=== PATIENT | female | born 1940 | race Caucasian/White ===

== ENCOUNTER 2017-01-18 14:27 | Inpatient (IN) | payer MEDICARE, MEDICAID ==
[2017-01-18 15:10] LABS: % BASOPHILS 0.8 % (0.0-2.0); % EOSINOPHILS 2.6 % (0.0-5.0); % LYMPHOCYTES 30.5 % (20.0-50.0); % NEUTROPHILS 57.1 % (40.0-80.0); HEMATOCRIT 38.1 % (35.0-45.0); HEMOGLOBIN 12.7 gm/dL (11.7-16.1); MEAN CELL VOLUME 96.3 fl (81-100); MEAN CORPUSCULAR HGB CONC 33.3 pg (28.0-36.0); MEAN PLATELET VOLUME 9.6 fl; NEUTROPHILE ABSOLUTE 5.6 Th/cmm (1.8-8.0); PLATELET COUNT 228 Th/cmm (150-400); RED BLOOD COUNT 3.96 Mil/cmm (3.80-5.20); RED CELL DISTRIBUTION WIDTH 13.8 % (11.5-20.0)
[2017-01-18 15:20] LABS: INR 0.99 (0.5-1.4); PROTHROMBIN TIME (TEST) 10.3 SECONDS (9.5-11.5)
--- NOTE | 2017-01-18 15:22 | ED Physician Chart ---
Chief Complaint/HPI - Patient Information Date Seen:: 01/18/17 Time Seen:: 14:40 Chief Complaint:: PSYCHOSIS History of Present Illness:: THIS IS A 76 YO FEMALE WHO WAS SENT FROM A DETENTION FOR AN EVALUATION OF MENTAL STATUS. Allergies:: Allergies Allergy/AdvReac Type Severity Reaction Status Date / Time piperacillin [From Zosyn] Allergy Verified 01/18/17 14:35 tazobactam [From Zosyn] Allergy Verified 01/18/17 14:35 Vitals:: Vital Signs - 8 hr 01/18/17 14:36 Temp 97.8 F HR 79 RR 17 BP 141/52 O2 Sat % 98 Historian:: Medical Records Review:: Nurse's Note Reviewed, Transfer documents Reviewed Review of Systems - Review of Systems General/Constitutional: Other (THIS PATIENT IS UNABLE TO GIVE A REVIEW OF SYSTEMS) Past Medical History - Past Medical History Obtainable: Yes Past Medical History: ESRD, Dementia, Other (ALCOHOL ABUSE) Family History: None Social History: Non Smoker, No Alcohol, No Drug Use Surgical History: None Psychiatricy History: Depression Medication: Reviewed Family Medical History - Family Member Mother History Unknown: Yes Physical Exam - Physical Examination General/Constitutional: Awake, Well-developed, well-nourished, Alert, No distress, GCS 15, Non-toxic appearing, Ambulatory Other Gen/Cons comments:: CONFUSED AT TIMES Head: Atraumatic Eyes: Lids, conjuctiva normal, PERRL, EOMI Skin: Nl inspection, No rash, No skin lesions, No ecchymosis, Well hydrated, No lymphadenopathy ENMT: External ears, nose nl, Nasal exam nl, Lips, teeth, gums nl Neck: Nontender, Full ROM w/o pain, No JVD, No nuchal rigidity, No bruit, No mass, No stridor Respiratory: Nl effort/Exclusion, Clear to Auscultation, No Wheeze/Rhonchi/Rales Cardio Vascular: RRR, No murmur, gallop, rubs, NL S1 S2 GI: No tenderness/rebounding/guarding, No organomegaly, No hernia, Normal BS's, Nondistended, No mass/bruits, No McBurney tenderness : No CVA tenderness Extremities: No tenderness or effusion, Full ROM, normal strength in all extremities, No edema, Normal digits & nails Neuro/Psych: Alert/oriented, DTR's symmetric, Normal sensory exam, Normal motor strength, Mood normal (DEPRESSED), Normal gait, No focal deficits Misc: normal gait, Normal back, No paraspinal tenderness Labs/Radiology/EKG Results - Lab Results Results: Laboratory Tests 01/18/17 14:58 WBC 10.0 RBC 3.96 Hgb 12.7 Hct 38.1 MCV 96.3 MCH 32.0 H MCHC Differential 33.3 RDW 13.8 Plt Count 228 MPV 9.6 Neutrophils % 57.1 Lymphocytes % 30.5 Monocytes % 9.0 Eosinophils % 2.6 Basophils % 0.8 Abnormal Lab Results 01/18/17 14:58 WBC 10.0 RBC 3.96 Hgb 12.7 Hct 38.1 MCV 96.3 MCH 32.0 H MCHC Differential 33.3 RDW 13.8 Plt Count 228 MPV 9.6 Neutrophils % 57.1 Lymphocytes % 30.5 Monocytes % 9.0 Eosinophils % 2.6 Basophils % 0.8 Assessment - Assessment General Assessment: PSYCHOSIS ED Septic Shock - . Is Septic Shock (SBP<90, OR Lactate>4 mmol\L) present?: No - <6hrs of presentation: Vital Signs: Vital Signs - 8 hr 01/18/17 14:36 Temp 97.8 F HR 79 RR 17 BP 141/52 O2 Sat % 98 Reassessment (Disposition) - Reassessment Reassessment Condition:: Unchanged - Patient Disposition Discharge/Transfer:: Acute Care w/in this hosp Admitting Medical Physician:: Caesar Ardon Admitting Psych Physician:: Star Camacho Condition at Disposition:: Unchanged ED Discharge Plan - Patient Disposition Instructions: Psychosis
[2017-01-18 15:25] LABS: ALB/GLOB RATIO 1.3 (1.0-1.8); ALKALINE PHOSPHATASE 67 U/L (34-104); ANION GAP 8.3 (7.0-16.0); BILIRUBIN,TOTAL 0.4 mg/dL (0.3-1.0); BUN - UREA NITROGEN 7 mg/dL (7-25); CALCIUM SERUM 9.9 mg/dL (8.6-10.3); CARBON DIOXIDE 25.4 mEq/L (21.0-31.0); CHLORIDE 107 mEq/L (98-107); CHOLESTEROL 185 mg/dL (<200); CREATININE - SERUM 0.5 mg/dL (0.6-1.2); GLUCOSE 114 mg/dL (70-105); POTASSIUM SERUM 3.7 mEq/L (3.5-5.1); SGOT 17 U/L (13-39); SGPT/ALT 9 U/L (7-52); SODIUM SERUM 137 mEq/L (136-145); TRIGLYCERIDES 129 mg/dL (<150)
[2017-01-18 15:52] LABS: URINE BILIRUBIN NEGATIVE (NEGATIVE); URINE BLOOD TRACE (NEGATIVE); URINE GLUCOSE (UA) NEGATIVE (NEGATIVE); URINE KETONE NEGATIVE (NEGATIVE); URINE PH 6.5 (4.6 - 8.0); URINE PROTEIN NEGATIVE (NEGATIVE); URINE UROBILINOGEN 0.2 E.U./dL (0.2 - 1.0)
[2017-01-18 16:11] LABS: URINE COLOR YELLOW
[2017-01-18 16:12] LABS: URINE BACTERIA MANY /hpf (NONE SEEN); URINE EPITHELIAL CELLS MODERATE /lpf (FEW); URINE RBC 0-2 /hpf (0-5); URINE WBC 0-2 /hpf (0-5)
[2017-01-18 18:00] VITALS: BP 139/80
[2017-01-18] MEDS ORDERED: Magnesium Hydroxide (MOM) 30 mL UDC PO PRN (19:37)
[2017-01-18] MEDS ORDERED: Maalox 30 mL Cup PO PRN (19:37)
--- NOTE | 2017-01-19 07:52 | Diagnostic Imaging Report ---
CHEST X-RAY: AP view INDICATION: Cough COMPARISON: None FINDINGS: Mild chronic changes are seen with slight increased left basal density. No focal consolidation. Heart size normal. Postoperative changes of left shoulder are noted with left shoulder arthroplasty. There appears to be skinfold along left hemithorax. No evidence of pneumothorax. Atherosclerosis is noted. IMPRESSION: Slight increase left basal density which is suggestive of chronic pleural or parenchymal changes. Acute infiltrative is considered much less likely. Please correlate with clinical findings. Atherosclerotic vascular disease. Left shoulder arthroplasty.
[2017-01-19] MEDS ORDERED: Multivitamin Tab PO SCH (09:00)
[2017-01-19] MEDS: Potassium Chloride 10 mEq ER Tab PO SCH (09:20)
--- NOTE | 2017-01-19 15:58 | History & Physical ---
ADMIT DATE: 01/19/2017 HISTORY OF PRESENT ILLNESS: This is a 76-year-old female who is a [facility] resident who is brought here to [facility] for psychosis. PAST MEDICAL HISTORY: ESRD, dementia, alcohol abuse. FAMILY HISTORY: Noncontributory. SOCIAL HISTORY: The patient is a [facility] resident. SURGICAL HISTORY: None per patient. MEDICATIONS: Please see medication reconciliation sheet. REVIEW OF SYSTEMS: Unable to obtain. The patient is confused. PHYSICAL EXAMINATION: GENERAL: The patient is well developed, well nourished, no acute distress. VITAL SIGNS: Temperature 98.6, heart rate 104, blood pressure 106/73, respirations 20, O2 98%. HEENT: Head; normocephalic, atraumatic. NECK: Supple. No mass. LUNGS: Clear bilaterally. HEART: Regular rhythm. ABDOMEN: Soft, nontender. LABORATORY DATA: WBC 7.0, H and H 12.7 and 38.1, platelet of ____. Sodium 137, potassium 3.7, chloride 107, BUN 7, creatinine 0.5. The patient had a urinalysis done, negative for any UTI. The patient had a chest x-ray done and the impression is slightly increased left basilar ____, which is ____ chronic pleural or parenchymal changes. ASSESSMENT: Acute kidney failure, muscle weakness, major depressive disorder, hypokalemia, psychosis. PLAN: The patient will be admitted to the Geropsych Unit. Fall precautions will be initiated. We will continue to monitor this patient. [facility]# [id number]
--- NOTE | 2017-01-19 23:08 | Psychosocial Evaluation ---
DATE OF SERVICE: 01/19/2017 JUSTIFICATION FOR HOSPITALIZATION: The patient was brought to the hospital depressed, suicidal, currently on a 1:1. CHIEF COMPLAINT: "I don't know what they are talking about. I love to dance and sing." HISTORY OF PRESENT ILLNESS: This is a 76-year-old female, seems confused, alert and oriented to name, place. She does not know why she is here. She states the year is 2012. She states the month is August. Day of the week is Wednesday. The patient is denying any SI, but apparently, she presented with SI and was threatening to swallow her ring. Attest to poor sleep, insomnia, okay appetite, rambles on about how she loves life and loves to sing and dance. PAST PSYCHIATRIC HISTORY: Denies. She may have a diagnosis of dementia given her presentation and age. FAMILY HISTORY: Noncontributory. SOCIAL HISTORY: Born in [facility], 3 children. Currently living in a nursing facility. There may be also alcoholism involved, but the patient does deny. MEDICAL HISTORY: Please see full H and P. MENTAL STATUS EXAMINATION: Stated age. Fair eye contact. Speech within normal limits. Mood "Fine." Affect constricted. Thought processes were disoriented, confused. The patient presented due to SI, but currently denies. No HI. No overt psychotic symptoms. Insight and judgment diminished. PROVISIONAL DIAGNOSES: Rule out dementia, also mood, unspecified, rule out major depression. MEDICAL DIAGNOSIS: Please see full H and P. ESTIMATED LENGTH OF STAY: 5-7 days. ASSESSMENT: The patient is requiring inpatient hospitalization, was threatening suicide. Currently on a 1:1. Endorsing intent and plan. PLAN: I will continue Zoloft. We will have social work involved with increased collateral. TREATMENT PLAN: Includes group as well as milieu therapy. CONDITIONS FOR DISCHARGE: Improved mood. Improved affect. Cessation of any SI. JOB# [id number]
--- NOTE | 2017-01-20 08:28 | General Progress Note ---
Subjective - Review of Systems Events since last encounter: no distress Objective - Results Result Diagrams: 01/18/17 14:58 01/18/17 14:58 Recent Labs: Laboratory Last Values WBC 10.0 Th/cmm (4.8-10.8) 01/18/17 14:58 RBC 3.96 Mil/cmm (3.80-5.20) 01/18/17 14:58 Hgb 12.7 gm/dL (11.7-16.1) 01/18/17 14:58 Hct 38.1 % (35.0-45.0) 01/18/17 14:58 MCV 96.3 fl (81-100) 01/18/17 14:58 MCH 32.0 pg (27.0-31.0) H 01/18/17 14:58 MCHC Differential 33.3 pg (28.0-36.0) 01/18/17 14:58 RDW 13.8 % (11.5-20.0) 01/18/17 14:58 Plt Count 228 Th/cmm (150-400) 01/18/17 14:58 MPV 9.6 fl 01/18/17 14:58 Neutrophils % 57.1 % (40.0-80.0) 01/18/17 14:58 Lymphocytes % 30.5 % (20.0-50.0) 01/18/17 14:58 Monocytes % 9.0 % (2.0-10.0) 01/18/17 14:58 Eosinophils % 2.6 % (0.0-5.0) 01/18/17 14:58 Basophils % 0.8 % (0.0-2.0) 01/18/17 14:58 PT 10.3 SECONDS (9.5-11.5) 01/18/17 14:58 INR 0.99 (0.5-1.4) 01/18/17 14:58 PTT (Actin FS) 23.2 SECONDS (26.0-38.0) L 01/18/17 14:58 Sodium 137 mEq/L (136-145) 01/18/17 14:58 Potassium 3.7 mEq/L (3.5-5.1) 01/18/17 14:58 Chloride 107 mEq/L (98-107) 01/18/17 14:58 Carbon Dioxide 25.4 mEq/L (21.0-31.0) 01/18/17 14:58 Anion Gap 8.3 (7.0-16.0) 01/18/17 14:58 BUN 7 mg/dL (7-25) 01/18/17 14:58 Creatinine 0.5 mg/dL (0.6-1.2) L 01/18/17 14:58 Est GFR ( Amer) TNP 01/18/17 14:58 Est GFR (Non-Af Amer) TNP 01/18/17 14:58 BUN/Creatinine Ratio 14.0 01/18/17 14:58 Glucose 114 mg/dL (70-105) H 01/18/17 14:58 Calcium 9.9 mg/dL (8.6-10.3) 01/18/17 14:58 Total Bilirubin 0.4 mg/dL (0.3-1.0) 01/18/17 14:58 AST 17 U/L (13-39) 01/18/17 14:58 ALT 9 U/L (7-52) 01/18/17 14:58 Alkaline Phosphatase 67 U/L (34-104) 01/18/17 14:58 Troponin I 0.01 ng/mL (0.01-0.05) 01/18/17 14:58 Total Protein 6.8 gm/dL (6.0-8.3) 01/18/17 14:58 Albumin 3.8 gm/dL (3.7-5.3) 01/18/17 14:58 Globulin 3.0 gm/dL 01/18/17 14:58 Albumin/Globulin Ratio 1.3 (1.0-1.8) 01/18/17 14:58 Triglycerides 129 mg/dL (<150) 01/18/17 14:58 Cholesterol 185 mg/dL (<200) 01/18/17 14:58 LDL Cholesterol Direct 99 mg/dL (75-193) 01/18/17 14:58 HDL Cholesterol 62 mg/dL (23-92) 01/18/17 14:58 TSH 1.78 uIU/ml (0.34-5.60) 01/18/17 14:58 Urine Source CLEAN C 01/18/17 14:30 Urine Color YELLOW 01/18/17 14:30 Urine Clarity SLIGHT CLOUDY (CLEAR) 01/18/17 14:30 Urine pH 6.5 (4.6 - 8.0) 01/18/17 14:30 Ur Specific [place] 1.015 (1.005-1.030) 01/18/17 14:30 Urine Protein NEGATIVE mg/dL (NEGATIVE) 01/18/17 14:30 Urine Glucose (UA) NEGATIVE mg/dL (NEGATIVE) 01/18/17 14:30 Urine Ketones NEGATIVE mg/dL (NEGATIVE) 01/18/17 14:30 Urine Blood TRACE (NEGATIVE) 01/18/17 14:30 Urine Nitrate NEGATIVE (NEGATIVE) 01/18/17 14:30 Urine Bilirubin NEGATIVE (NEGATIVE) 01/18/17 14:30 Urine Urobilinogen 0.2 E.U./dL (0.2 - 1.0) 01/18/17 14:30 Ur Leukocyte Esterase NEGATIVE (NEGATIVE) 01/18/17 14:30 Urine RBC 0-2 /hpf (0-5) 01/18/17 14:30 Urine WBC 0-2 /hpf (0-5) 01/18/17 14:30 Ur Epithelial Cells MODERATE /lpf (FEW) 01/18/17 14:30 Urine Bacteria MANY /hpf (NONE SEEN) 01/18/17 14:30 RPR NONREACTIVE (NONREACTIVE) 01/18/17 14:58 - Physical Exam Vitals and I&O: Vital Signs Temp 98.8 F 01/20/17 06:42 Pulse 63 01/20/17 06:42 Resp 18 01/20/17 06:42 BP 95/46 01/20/17 06:42 Pulse Ox 98 01/19/17 20:45 Intake & Output 01/19/17 01/20/17 01/20/17 18:59 06:59 18:59 Intake Total 950 240 Balance 950 240 Weight (lbs) 65.771 kg Intake: Oral 950 240 Other: # Voids 4 3 # Bowel Movements 1 0 Active Medications: Current Medications Acetaminophen (Tylenol) 650 mg PO Q4HR PRN PRN Reason: Mild Pain / Temp above 100 Stop: 03/19/17 19:36 Al Hydrox/Mg Hydrox/Simethicone (Maalox) 30 ml PO Q4HR PRN PRN Reason: GI DISTRESS Stop: 03/19/17 19:36 Docusate Sodium (Colace) 100 mg PO Q24HR PRN PRN Reason: Constipation Stop: 03/19/17 19:59 Folic Acid (Folate) 1 mg PO DAILY JACQUES Stop: 03/20/17 08:59 Last Admin: 01/19/17 09:20 Dose: 1 mg Lorazepam (Ativan) 0.5 mg PO Q4H PRN; Protocol PRN Reason: Anxiety Stop: 03/19/17 18:59 Magnesium Hydroxide (Milk Of Magnesia) 30 ml PO HS PRN PRN Reason: Constipation Ondansetron HCl (Zofran Odt) 4 mg PO Q6H PRN PRN Reason: Nausea / Vomiting Stop: 03/19/17 19:51 Potassium Chloride (Klor-Con) 10 meq PO DAILY JACQUES Stop: 03/20/17 08:59 Last Admin: 01/19/17 09:20 Dose: 10 meq Sertraline HCl (Zoloft) 25 mg PO DAILY JACQUES PRN Reason: Protocol Stop: 03/20/17 17:59 Last Admin: 01/19/17 18:49 Dose: 25 mg Thiamine HCl (Vitamin B1) 100 mg PO DAILY [facility] Stop: 03/20/17 08:59 Last Admin: 01/19/17 09:21 Dose: 100 mg Tramadol HCl (Ultram) 50 mg PO Q8HR PRN PRN Reason: PAIN Stop: 03/19/17 19:46 Zolpidem Tartrate (Ambien) 5 mg PO HS PRN PRN Reason: Insomnia Stop: 03/19/17 19:36 Assessment/Plan - Problem List Patient Problems: All Active Problems DEPRESSION WITH SUICIDAL IDEATION (Acute)
[2017-01-20] MEDS: Potassium Chloride 10 mEq ER Tab PO SCH (10:38)
--- NOTE | 2017-01-21 03:12 | Progress Notes ---
DATE: 01/20/2017 SUBJECTIVE: The patient was seen, chart reviewed, and discussed with staff. The patient is currently in the hospital, depressed, was making suicidal statements, yesterday she denied, but today, she states that she did make those statements stating she was very depressed. The patient remains somewhat disoriented. She states that she is quite moravian, however and is reading some moravian scripts. She has history of dementia and states that her kids are involved in her care. She remains isolative, withdrawn, currently on Zoloft. ASSESSMENT: The patient was seen, apparent history of dementia, overwhelmed, guarded. It is unclear why she was so depressed. It is unclear why she was experiencing suicidal thoughts. PLAN: We will try to increase collateral, reach out to family. We will monitor. Consider increasing Zoloft. JOB# [id number]
--- NOTE | 2017-01-21 04:52 | Admit Criteria Form ---
Admit Criteria Forms - Admit Criteria Diagnosis: PSYCHIATRIC DISORDERS (Place 'X' for any and all applicable criteria): Ongoing inpatient care may be needed for 1 or more of the following(1)(2)(3)(4)( 6)(7)(8): [ X]I. Danger to self or others not manageable at lower level of care. [ ]II. Grave disability (eg, inability to perform self care necessary at lower level of care) [ ]III. Agitation or inappropriate behavior interfering with care for primary condition (eg, attempting to discontinue lines or drains prematurely, unable to cooperate with respiratory care) [ ]IV. Severe disability or disorder indicated by ALL of the following: [ ]a) Severe behavioral health disorder-related symptoms or condition indicated by 1 or more of the following: [ ]i) Severe problem with cognition, memory, judgment, or impulse control [ ]ii) Severe clinical manifestations (eg, hallucinations, delusions, other acute psychotic symptoms, kemi, extreme agitation or anxiety) [ ]b) Patient management at lower level of care is not feasible until acute intervention or modification is initiated. Extended stay beyond goal length of stay for the primary condition may be needed until ALLof the following are present(1)(2)(3)(4)7)10)(23): [ ]a) Danger to self or others is absent or manageable at lower level of care [ ]b) Behavior crisis management, including physical or chemical restraints, is required and is not available at a lower level of care. [ ]c) Behavioral symptoms (e.g., agitation, somnolence, inappropriate behavior) are present, and are not manageable at a lower level of care. [ ]d) Patient cannot understand follow-up treatment and crisis plan. [ ]e) Provider and supports are sufficiently available at lower level of care. [ ]f) Patient can participate (e.g., verify absence of plan for harm) and is in needed of monitoring. The original [facility] [employer] content created by [facility]ark[facility]igatorMD has been revised. The portions of the content which have been revised are identified through the use of italic text or in bold, and [facility] has neither reviewed nor approved the modified material. All other unmodified content is copyright [facility]. Please see references footnoted in the original [facility] edition 2017 Admit Criteria Met?: Yes
--- NOTE | 2017-01-21 08:01 | General Progress Note ---
Subjective - Review of Systems Events since last encounter: patient is awake alert, withdrawn Objective - Results Result Diagrams: 01/18/17 14:58 01/18/17 14:58 Recent Labs: Laboratory Last Values WBC 10.0 Th/cmm (4.8-10.8) 01/18/17 14:58 RBC 3.96 Mil/cmm (3.80-5.20) 01/18/17 14:58 Hgb 12.7 gm/dL (11.7-16.1) 01/18/17 14:58 Hct 38.1 % (35.0-45.0) 01/18/17 14:58 MCV 96.3 fl (81-100) 01/18/17 14:58 MCH 32.0 pg (27.0-31.0) H 01/18/17 14:58 MCHC Differential 33.3 pg (28.0-36.0) 01/18/17 14:58 RDW 13.8 % (11.5-20.0) 01/18/17 14:58 Plt Count 228 Th/cmm (150-400) 01/18/17 14:58 MPV 9.6 fl 01/18/17 14:58 Neutrophils % 57.1 % (40.0-80.0) 01/18/17 14:58 Lymphocytes % 30.5 % (20.0-50.0) 01/18/17 14:58 Monocytes % 9.0 % (2.0-10.0) 01/18/17 14:58 Eosinophils % 2.6 % (0.0-5.0) 01/18/17 14:58 Basophils % 0.8 % (0.0-2.0) 01/18/17 14:58 PT 10.3 SECONDS (9.5-11.5) 01/18/17 14:58 INR 0.99 (0.5-1.4) 01/18/17 14:58 PTT (Actin FS) 23.2 SECONDS (26.0-38.0) L 01/18/17 14:58 Sodium 137 mEq/L (136-145) 01/18/17 14:58 Potassium 3.7 mEq/L (3.5-5.1) 01/18/17 14:58 Chloride 107 mEq/L (98-107) 01/18/17 14:58 Carbon Dioxide 25.4 mEq/L (21.0-31.0) 01/18/17 14:58 Anion Gap 8.3 (7.0-16.0) 01/18/17 14:58 BUN 7 mg/dL (7-25) 01/18/17 14:58 Creatinine 0.5 mg/dL (0.6-1.2) L 01/18/17 14:58 Est GFR ( Amer) TNP 01/18/17 14:58 Est GFR (Non-Af Amer) TNP 01/18/17 14:58 BUN/Creatinine Ratio 14.0 01/18/17 14:58 Glucose 114 mg/dL (70-105) H 01/18/17 14:58 Calcium 9.9 mg/dL (8.6-10.3) 01/18/17 14:58 Total Bilirubin 0.4 mg/dL (0.3-1.0) 01/18/17 14:58 AST 17 U/L (13-39) 01/18/17 14:58 ALT 9 U/L (7-52) 01/18/17 14:58 Alkaline Phosphatase 67 U/L (34-104) 01/18/17 14:58 Troponin I 0.01 ng/mL (0.01-0.05) 01/18/17 14:58 Total Protein 6.8 gm/dL (6.0-8.3) 01/18/17 14:58 Albumin 3.8 gm/dL (3.7-5.3) 01/18/17 14:58 Globulin 3.0 gm/dL 01/18/17 14:58 Albumin/Globulin Ratio 1.3 (1.0-1.8) 01/18/17 14:58 Triglycerides 129 mg/dL (<150) 01/18/17 14:58 Cholesterol 185 mg/dL (<200) 01/18/17 14:58 LDL Cholesterol Direct 99 mg/dL (75-193) 01/18/17 14:58 HDL Cholesterol 62 mg/dL (23-92) 01/18/17 14:58 TSH 1.78 uIU/ml (0.34-5.60) 01/18/17 14:58 Urine Source CLEAN C 01/18/17 14:30 Urine Color YELLOW 01/18/17 14:30 Urine Clarity SLIGHT CLOUDY (CLEAR) 01/18/17 14:30 Urine pH 6.5 (4.6 - 8.0) 01/18/17 14:30 Ur Specific [place] 1.015 (1.005-1.030) 01/18/17 14:30 Urine Protein NEGATIVE mg/dL (NEGATIVE) 01/18/17 14:30 Urine Glucose (UA) NEGATIVE mg/dL (NEGATIVE) 01/18/17 14:30 Urine Ketones NEGATIVE mg/dL (NEGATIVE) 01/18/17 14:30 Urine Blood TRACE (NEGATIVE) 01/18/17 14:30 Urine Nitrate NEGATIVE (NEGATIVE) 01/18/17 14:30 Urine Bilirubin NEGATIVE (NEGATIVE) 01/18/17 14:30 Urine Urobilinogen 0.2 E.U./dL (0.2 - 1.0) 01/18/17 14:30 Ur Leukocyte Esterase NEGATIVE (NEGATIVE) 01/18/17 14:30 Urine RBC 0-2 /hpf (0-5) 01/18/17 14:30 Urine WBC 0-2 /hpf (0-5) 01/18/17 14:30 Ur Epithelial Cells MODERATE /lpf (FEW) 01/18/17 14:30 Urine Bacteria MANY /hpf (NONE SEEN) 01/18/17 14:30 RPR NONREACTIVE (NONREACTIVE) 01/18/17 14:58 - Physical Exam Vitals and I&O: Vital Signs Temp 98.1 F 01/20/17 20:00 Pulse 96 01/20/17 20:00 Resp 20 01/20/17 20:00 BP 136/76 01/20/17 20:00 Pulse Ox 98 01/20/17 20:00 Intake & Output 01/20/17 01/21/17 01/21/17 18:59 06:59 18:59 Intake Total 400 Balance 400 Intake: Oral 400 Other: # Bowel Movements 0 Active Medications: Current Medications Acetaminophen (Tylenol) 650 mg PO Q4HR PRN PRN Reason: Mild Pain / Temp above 100 Stop: 03/19/17 19:36 Al Hydrox/Mg Hydrox/Simethicone (Maalox) 30 ml PO Q4HR PRN PRN Reason: GI DISTRESS Stop: 03/19/17 19:36 Docusate Sodium (Colace) 100 mg PO Q24HR PRN PRN Reason: Constipation Stop: 03/19/17 19:59 Folic Acid (Folate) 1 mg PO DAILY JACQUES Stop: 03/20/17 08:59 Last Admin: 01/20/17 10:38 Dose: 1 mg Lorazepam (Ativan) 0.5 mg PO Q4H PRN; Protocol PRN Reason: Anxiety Stop: 03/19/17 18:59 Magnesium Hydroxide (Milk Of Magnesia) 30 ml PO HS PRN PRN Reason: Constipation Ondansetron HCl (Zofran Odt) 4 mg PO Q6H PRN PRN Reason: Nausea / Vomiting Stop: 03/19/17 19:51 Potassium Chloride (Klor-Con) 10 meq PO DAILY JACQUES Stop: 03/20/17 08:59 Last Admin: 01/20/17 10:38 Dose: 10 meq Sertraline HCl (Zoloft) 25 mg PO DAILY JACQUES PRN Reason: Protocol Stop: 03/20/17 17:59 Last Admin: 01/20/17 10:38 Dose: 25 mg Thiamine HCl (Vitamin B1) 100 mg PO DAILY JACQUSE Stop: 03/20/17 08:59 Last Admin: 01/20/17 10:38 Dose: 100 mg Tramadol HCl (Ultram) 50 mg PO Q8HR PRN PRN Reason: PAIN Stop: 03/19/17 19:46 Zolpidem Tartrate (Ambien) 5 mg PO HS PRN PRN Reason: Insomnia Stop: 03/19/17 19:36 General: No acute distress HEENT: Atraumatic Cardiovascular: Regular rate, Normal S1, Normal S2 Assessment/Plan - Problem List Patient Problems: All Active Problems DEPRESSION WITH SUICIDAL IDEATION (Acute) - Plan Plan: monitor vital/diet labs f/up consultants
[2017-01-21] MEDS: Potassium Chloride 10 mEq ER Tab PO SCH (09:14)
--- NOTE | 2017-01-21 21:08 | Progress Notes ---
DATE: 01/21/[address] Camacho. Case was discussed with staff of the patient, reviewed records. The patient is on one to one because she suffers ____, she swallowed the ring the other day. She is unpredictable, impulsive. She is a 76-year-old female who was admitted on 01/18/2017January because of psychosis. She was confused. She is not sure why she is here. She believes this is 2012 and this is August. She denies suicidal ideation in the beginning, but apparently she presented with suicidal ideation was threatening to swallow her ring, which she did. She has poor sleep. Appetite is okay, rambling, unpredictable, impulsive. She is from [facility]. She has three children living in a nursing facility. I have talked to her, she was minimizing events that led to her admission. She is unpredictable and impulsive, needing redirection. Dr. Camacho had her on Zoloft 25 mg a day, that was initiated 2 days ago with no side effects and I will be increasing the dose to 50 mg a day and so far no side effects, no nausea, no sedation, no agitation and we will continue to work with the patient in group therapy, milieu therapy, adjust the medication as needed. [facility]# [id number]
[2017-01-22] MEDS: Potassium Chloride 10 mEq ER Tab PO SCH (08:38)
--- NOTE | 2017-01-22 08:52 | General Progress Note ---
Subjective - Review of Systems Events since last encounter: no distress Objective - Results Result Diagrams: 01/18/17 14:58 01/18/17 14:58 Recent Labs: Laboratory Last Values WBC 10.0 Th/cmm (4.8-10.8) 01/18/17 14:58 RBC 3.96 Mil/cmm (3.80-5.20) 01/18/17 14:58 Hgb 12.7 gm/dL (11.7-16.1) 01/18/17 14:58 Hct 38.1 % (35.0-45.0) 01/18/17 14:58 MCV 96.3 fl (81-100) 01/18/17 14:58 MCH 32.0 pg (27.0-31.0) H 01/18/17 14:58 MCHC Differential 33.3 pg (28.0-36.0) 01/18/17 14:58 RDW 13.8 % (11.5-20.0) 01/18/17 14:58 Plt Count 228 Th/cmm (150-400) 01/18/17 14:58 MPV 9.6 fl 01/18/17 14:58 Neutrophils % 57.1 % (40.0-80.0) 01/18/17 14:58 Lymphocytes % 30.5 % (20.0-50.0) 01/18/17 14:58 Monocytes % 9.0 % (2.0-10.0) 01/18/17 14:58 Eosinophils % 2.6 % (0.0-5.0) 01/18/17 14:58 Basophils % 0.8 % (0.0-2.0) 01/18/17 14:58 PT 10.3 SECONDS (9.5-11.5) 01/18/17 14:58 INR 0.99 (0.5-1.4) 01/18/17 14:58 PTT (Actin FS) 23.2 SECONDS (26.0-38.0) L 01/18/17 14:58 Sodium 137 mEq/L (136-145) 01/18/17 14:58 Potassium 3.7 mEq/L (3.5-5.1) 01/18/17 14:58 Chloride 107 mEq/L (98-107) 01/18/17 14:58 Carbon Dioxide 25.4 mEq/L (21.0-31.0) 01/18/17 14:58 Anion Gap 8.3 (7.0-16.0) 01/18/17 14:58 BUN 7 mg/dL (7-25) 01/18/17 14:58 Creatinine 0.5 mg/dL (0.6-1.2) L 01/18/17 14:58 Est GFR ( Amer) TNP 01/18/17 14:58 Est GFR (Non-Af Amer) TNP 01/18/17 14:58 BUN/Creatinine Ratio 14.0 01/18/17 14:58 Glucose 114 mg/dL (70-105) H 01/18/17 14:58 Calcium 9.9 mg/dL (8.6-10.3) 01/18/17 14:58 Total Bilirubin 0.4 mg/dL (0.3-1.0) 01/18/17 14:58 AST 17 U/L (13-39) 01/18/17 14:58 ALT 9 U/L (7-52) 01/18/17 14:58 Alkaline Phosphatase 67 U/L (34-104) 01/18/17 14:58 Troponin I 0.01 ng/mL (0.01-0.05) 01/18/17 14:58 Total Protein 6.8 gm/dL (6.0-8.3) 01/18/17 14:58 Albumin 3.8 gm/dL (3.7-5.3) 01/18/17 14:58 Globulin 3.0 gm/dL 01/18/17 14:58 Albumin/Globulin Ratio 1.3 (1.0-1.8) 01/18/17 14:58 Triglycerides 129 mg/dL (<150) 01/18/17 14:58 Cholesterol 185 mg/dL (<200) 01/18/17 14:58 LDL Cholesterol Direct 99 mg/dL (75-193) 01/18/17 14:58 HDL Cholesterol 62 mg/dL (23-92) 01/18/17 14:58 TSH 1.78 uIU/ml (0.34-5.60) 01/18/17 14:58 Urine Source CLEAN C 01/18/17 14:30 Urine Color YELLOW 01/18/17 14:30 Urine Clarity SLIGHT CLOUDY (CLEAR) 01/18/17 14:30 Urine pH 6.5 (4.6 - 8.0) 01/18/17 14:30 Ur Specific [place] 1.015 (1.005-1.030) 01/18/17 14:30 Urine Protein NEGATIVE mg/dL (NEGATIVE) 01/18/17 14:30 Urine Glucose (UA) NEGATIVE mg/dL (NEGATIVE) 01/18/17 14:30 Urine Ketones NEGATIVE mg/dL (NEGATIVE) 01/18/17 14:30 Urine Blood TRACE (NEGATIVE) 01/18/17 14:30 Urine Nitrate NEGATIVE (NEGATIVE) 01/18/17 14:30 Urine Bilirubin NEGATIVE (NEGATIVE) 01/18/17 14:30 Urine Urobilinogen 0.2 E.U./dL (0.2 - 1.0) 01/18/17 14:30 Ur Leukocyte Esterase NEGATIVE (NEGATIVE) 01/18/17 14:30 Urine RBC 0-2 /hpf (0-5) 01/18/17 14:30 Urine WBC 0-2 /hpf (0-5) 01/18/17 14:30 Ur Epithelial Cells MODERATE /lpf (FEW) 01/18/17 14:30 Urine Bacteria MANY /hpf (NONE SEEN) 01/18/17 14:30 RPR NONREACTIVE (NONREACTIVE) 01/18/17 14:58 - Physical Exam Vitals and I&O: Vital Signs Temp 97.2 F 01/22/17 06:46 Pulse 73 01/22/17 06:46 Resp 18 01/22/17 06:46 BP 113/57 01/22/17 06:46 Pulse Ox 98 01/22/17 06:46 Intake & Output 01/21/17 01/22/17 01/22/17 18:59 06:59 18:59 Intake Total 120 Balance 120 Intake: Oral 120 Other: # Voids 3 Active Medications: Current Medications Acetaminophen (Tylenol) 650 mg PO Q4HR PRN PRN Reason: Mild Pain / Temp above 100 Stop: 03/19/17 19:36 Al Hydrox/Mg Hydrox/Simethicone (Maalox) 30 ml PO Q4HR PRN PRN Reason: GI DISTRESS Stop: 03/19/17 19:36 Docusate Sodium (Colace) 100 mg PO Q24HR PRN PRN Reason: Constipation Stop: 03/19/17 19:59 Folic Acid (Folate) 1 mg PO DAILY JACQUES Stop: 03/20/17 08:59 Last Admin: 01/22/17 08:38 Dose: 1 mg Lorazepam (Ativan) 0.5 mg PO Q4H PRN; Protocol PRN Reason: Anxiety Stop: 03/19/17 18:59 Magnesium Hydroxide (Milk Of Magnesia) 30 ml PO HS PRN PRN Reason: Constipation Ondansetron HCl (Zofran Odt) 4 mg PO Q6H PRN PRN Reason: Nausea / Vomiting Stop: 03/19/17 19:51 Potassium Chloride (Klor-Con) 10 meq PO DAILY JACQUES Stop: 03/20/17 08:59 Last Admin: 01/22/17 08:38 Dose: 10 meq Sertraline HCl (Zoloft) 50 mg PO DAILY JACQUES PRN Reason: Protocol Stop: 03/22/17 12:08 Last Admin: 01/22/17 08:38 Dose: 50 mg Thiamine HCl (Vitamin B1) 100 mg PO DAILY JACQUES Stop: 03/20/17 08:59 Last Admin: 01/22/17 08:39 Dose: 100 mg Tramadol HCl (Ultram) 50 mg PO Q8HR PRN PRN Reason: PAIN Stop: 03/19/17 19:46 Zolpidem Tartrate (Ambien) 5 mg PO HS PRN PRN Reason: Insomnia Stop: 03/19/17 19:36 General: No acute distress HEENT: Atraumatic Cardiovascular: Regular rate, Normal S1, Normal S2 Assessment/Plan - Problem List Patient Problems: All Active Problems DEPRESSION WITH SUICIDAL IDEATION (Acute) - Plan Plan: monitor vital/diet labs f/up consultants
--- NOTE | 2017-01-22 22:22 | Progress Notes ---
DATE: 01/22/[address] Camacho. Case discussed with staff of the patient, reviewed records. The patient has ____. She is on 1:1, because she swallowed her ring. She continues to have poor insight, unable to make safe plan for her self-care. Unpredictable, impulsive, needing redirection. She has been compliant with the medication with no side effects, no sedation, no nausea. I did increase her Zoloft to 50 mg a day and we will continue to offer the patient group therapy, milieu therapy, adjust medication as needed. The patient did not look for any intent to harm herself, though. JOB# [id number]
[2017-01-23] MEDS: Potassium Chloride 10 mEq ER Tab PO SCH (08:55)
--- NOTE | 2017-01-23 11:39 | General Progress Note ---
Subjective - Review of Systems Events since last encounter: no distress patient confused withdrawn Objective - Results Result Diagrams: 01/18/17 14:58 01/18/17 14:58 Recent Labs: Laboratory Last Values WBC 10.0 Th/cmm (4.8-10.8) 01/18/17 14:58 RBC 3.96 Mil/cmm (3.80-5.20) 01/18/17 14:58 Hgb 12.7 gm/dL (11.7-16.1) 01/18/17 14:58 Hct 38.1 % (35.0-45.0) 01/18/17 14:58 MCV 96.3 fl (81-100) 01/18/17 14:58 MCH 32.0 pg (27.0-31.0) H 01/18/17 14:58 MCHC Differential 33.3 pg (28.0-36.0) 01/18/17 14:58 RDW 13.8 % (11.5-20.0) 01/18/17 14:58 Plt Count 228 Th/cmm (150-400) 01/18/17 14:58 MPV 9.6 fl 01/18/17 14:58 Neutrophils % 57.1 % (40.0-80.0) 01/18/17 14:58 Lymphocytes % 30.5 % (20.0-50.0) 01/18/17 14:58 Monocytes % 9.0 % (2.0-10.0) 01/18/17 14:58 Eosinophils % 2.6 % (0.0-5.0) 01/18/17 14:58 Basophils % 0.8 % (0.0-2.0) 01/18/17 14:58 PT 10.3 SECONDS (9.5-11.5) 01/18/17 14:58 INR 0.99 (0.5-1.4) 01/18/17 14:58 PTT (Actin FS) 23.2 SECONDS (26.0-38.0) L 01/18/17 14:58 Sodium 137 mEq/L (136-145) 01/18/17 14:58 Potassium 3.7 mEq/L (3.5-5.1) 01/18/17 14:58 Chloride 107 mEq/L (98-107) 01/18/17 14:58 Carbon Dioxide 25.4 mEq/L (21.0-31.0) 01/18/17 14:58 Anion Gap 8.3 (7.0-16.0) 01/18/17 14:58 BUN 7 mg/dL (7-25) 01/18/17 14:58 Creatinine 0.5 mg/dL (0.6-1.2) L 01/18/17 14:58 Est GFR ( Amer) TNP 01/18/17 14:58 Est GFR (Non-Af Amer) TNP 01/18/17 14:58 BUN/Creatinine Ratio 14.0 01/18/17 14:58 Glucose 114 mg/dL (70-105) H 01/18/17 14:58 Calcium 9.9 mg/dL (8.6-10.3) 01/18/17 14:58 Total Bilirubin 0.4 mg/dL (0.3-1.0) 01/18/17 14:58 AST 17 U/L (13-39) 01/18/17 14:58 ALT 9 U/L (7-52) 01/18/17 14:58 Alkaline Phosphatase 67 U/L (34-104) 01/18/17 14:58 Troponin I 0.01 ng/mL (0.01-0.05) 01/18/17 14:58 Total Protein 6.8 gm/dL (6.0-8.3) 01/18/17 14:58 Albumin 3.8 gm/dL (3.7-5.3) 01/18/17 14:58 Globulin 3.0 gm/dL 01/18/17 14:58 Albumin/Globulin Ratio 1.3 (1.0-1.8) 01/18/17 14:58 Triglycerides 129 mg/dL (<150) 01/18/17 14:58 Cholesterol 185 mg/dL (<200) 01/18/17 14:58 LDL Cholesterol Direct 99 mg/dL (75-193) 01/18/17 14:58 HDL Cholesterol 62 mg/dL (23-92) 01/18/17 14:58 TSH 1.78 uIU/ml (0.34-5.60) 01/18/17 14:58 Urine Source CLEAN C 01/18/17 14:30 Urine Color YELLOW 01/18/17 14:30 Urine Clarity SLIGHT CLOUDY (CLEAR) 01/18/17 14:30 Urine pH 6.5 (4.6 - 8.0) 01/18/17 14:30 Ur Specific [place] 1.015 (1.005-1.030) 01/18/17 14:30 Urine Protein NEGATIVE mg/dL (NEGATIVE) 01/18/17 14:30 Urine Glucose (UA) NEGATIVE mg/dL (NEGATIVE) 01/18/17 14:30 Urine Ketones NEGATIVE mg/dL (NEGATIVE) 01/18/17 14:30 Urine Blood TRACE (NEGATIVE) 01/18/17 14:30 Urine Nitrate NEGATIVE (NEGATIVE) 01/18/17 14:30 Urine Bilirubin NEGATIVE (NEGATIVE) 01/18/17 14:30 Urine Urobilinogen 0.2 E.U./dL (0.2 - 1.0) 01/18/17 14:30 Ur Leukocyte Esterase NEGATIVE (NEGATIVE) 01/18/17 14:30 Urine RBC 0-2 /hpf (0-5) 01/18/17 14:30 Urine WBC 0-2 /hpf (0-5) 01/18/17 14:30 Ur Epithelial Cells MODERATE /lpf (FEW) 01/18/17 14:30 Urine Bacteria MANY /hpf (NONE SEEN) 01/18/17 14:30 RPR NONREACTIVE (NONREACTIVE) 01/18/17 14:58 - Physical Exam Vitals and I&O: Vital Signs Temp 97.2 F 01/23/17 06:13 Pulse 72 01/23/17 06:13 Resp 18 01/23/17 06:13 BP 111/59 01/23/17 06:13 Pulse Ox 98 01/23/17 06:13 Intake & Output 01/22/17 01/23/17 01/23/17 18:59 06:59 18:59 Output Total 0 Balance 0 Weight (lbs) 54.567 kg Output: Stool 0 Other: # Voids 2 Active Medications: Current Medications Acetaminophen (Tylenol) 650 mg PO Q4HR PRN PRN Reason: Mild Pain / Temp above 100 Stop: 03/19/17 19:36 Al Hydrox/Mg Hydrox/Simethicone (Maalox) 30 ml PO Q4HR PRN PRN Reason: GI DISTRESS Stop: 03/19/17 19:36 Docusate Sodium (Colace) 100 mg PO Q24HR PRN PRN Reason: Constipation Stop: 03/19/17 19:59 Folic Acid (Folate) 1 mg PO DAILY JACQUES Stop: 03/20/17 08:59 Last Admin: 01/23/17 08:55 Dose: 1 mg Lorazepam (Ativan) 0.5 mg PO Q4H PRN; Protocol PRN Reason: Anxiety Stop: 03/19/17 18:59 Magnesium Hydroxide (Milk Of Magnesia) 30 ml PO HS PRN PRN Reason: Constipation Ondansetron HCl (Zofran Odt) 4 mg PO Q6H PRN PRN Reason: Nausea / Vomiting Stop: 03/19/17 19:51 Potassium Chloride (Klor-Con) 10 meq PO DAILY JACQUES Stop: 03/20/17 08:59 Last Admin: 01/23/17 08:55 Dose: 10 meq Sertraline HCl (Zoloft) 75 mg PO DAILY JACQUES PRN Reason: Protocol Stop: 03/24/17 10:34 Thiamine HCl (Vitamin B1) 100 mg PO DAILY JAQCUES Stop: 03/20/17 08:59 Last Admin: 01/23/17 08:55 Dose: 100 mg Tramadol HCl (Ultram) 50 mg PO Q8HR PRN PRN Reason: PAIN Stop: 03/19/17 19:46 Zolpidem Tartrate (Ambien) 5 mg PO HS PRN PRN Reason: Insomnia Stop: 03/19/17 19:36 General: No acute distress HEENT: Atraumatic Cardiovascular: Regular rate, Normal S1, Normal S2 Assessment/Plan - Problem List Patient Problems: All Active Problems DEPRESSION WITH SUICIDAL IDEATION (Acute) - Plan Plan: monitor vital/diet labs f/up consultants Nutritional Asmnt/Malnutr-PDOC - Dietary Evaluation Malnutrition Findings (Please click <Entered> for more info): Nutritional Asmnt/Malnutrition Start: 01/22/17 18: 16 Text: Status: Complete Freq: Document 01/22/17 18:16 [facility] (Rec: 01/22/17 18:22 [facility] [id number]) Nutritional Asmnt/Malnutrition Patient General Information Nutritional Screening Moderate Risk Screening Diagnosis Rule otu dementia, rule out major depression Pertinent Medical Hx/Surgical Hx Dementia, ESRD, alcohol abuse Subjective Information Pt is a 76-year-old female from [facility] admitted with chief complaint of depression and being suicidal. Pt was awake and alert during time of visit. Pt is a good historian. Pt reports having a good appetite prior to admit. Pt states she appreciates the ground textured diet provided and she is able tolerate meals. PT wears dentures. Pt reports hx of having 6 inches of intestines surgically removed and so she cannot eat large portions. Pt reports UBW 125# of years. Pt appears well nourished with no signs of muscle or fat depletion. Current Diet Order/ Nutrition Support Mechanical soft ground, HAMZAH, low fat, low cholesterol Patient / S.O Can Pertinent Medications Folate, Klor-Con, Vitamin B1 Pertinent Labs Reviewed Nutritional Hx/Data Height 1.63 m Height (Calculated Centimeters) 162.6 Current Weight (lbs) 54.567 kg Weight (Calculated Kilograms) 54.6 Weight (Calculated Grams) 30383.2 Usual body Weight (lbs) 125 % Usual Body Weight 96 [place] Body Weight 120 % [place] Body Weight 100 Recent Weight Change No Weight Status Approriate GI Symptoms GI Symptoms None Difficult in: Chewing Food Allergies No Cultural/Ethnic/Alevism Belief No cultural or druze beliefs provided. Pt receives fresh fruits and breakfast and lunch. Usual diet at home HAMZAH, low fat, low cholesterol Skin Integrity/Comment: [place] 20. Skin intact. Current %PO Fair (50-74%) Estimated Nutritional Goals BEE in Kcals: Using Current wt Calories/Kcals/Kg Based on current wt 54.7 kg Kcals Calculated 4863-0415 kcals/day (25-30 kcals/kg) Protein: Using Current wt Protein g/kg: Based on current wt 54.7 kg Protein Calculated 55 gm/day (1 gm/kg) Fluid: ml 7964-3736 ml/day (30-35 ml/kg) Nutritional Problem 1. Problem Problem No nutritional problems at this time. Malnutrition Alert Protein-Calorie Malnutrition N/A Is there a minimum of two criteria No selected? Query Text:Check all the applicable criteria. A minimum of two criteria are recommended for diagnosis of either severe or non-severe malnutrition. Malnutrition Related to Morbid Obesity Malnutrition related to morbid obesity No Intervention/Recommendation Comments 1. Continue with current diet as tolerated. 2. If PO intake decreases due to early satiety, recommend six small meals per day for better tolerance. Expected Outcomes/Goals Expected Outcomes/Goals Have pt meet at least 75% of estimated nutritional needs. Physician Parameters for PEM Normal Weight % 90% - 110% (Normal) Body Mass Index (BMI) 19 - 24 (Normal) Serum Albumin (g/dl) 3.5 - 5.0 (Normal)
--- NOTE | 2017-01-23 14:00 | Progress Notes ---
DATE: 01/23/2017 Dr. Charles covering for Dr. Camacho. SUBJECTIVE: Chart reviewed and the patient interviewed. Also discussed the patient's condition with the staff and reviewed records and labs. The patient is still obsessed with questions regarding her belongings. The patient also was taking her belongings including rings or anything she can get and swallow it. The patient showed slight decrease in the behavior yesterday, but she is still asking the same questions over and over to staff. Her cognition and her ability to understand the response of the patient seems to be poor, but the patient is still obsessed with questions. Dr. Camacho had the patient on Zoloft 50 mg every day with no side effects and Dr. Camacho is having the patient on thiamine. ASSESSMENT: The patient is still depressed and is still obsessed with questions that are unrelated. TREATMENT PLAN: We will continue monitoring her behavior and her condition closely. Also, we will increase Zoloft to ____ mg everyday and we will continue to monitor her behavior closely. JOB# [id number]
--- NOTE | 2017-01-24 06:59 | General Progress Note ---
Subjective - Review of Systems Events since last encounter: patient continues to be depressed confused, denies any chest pain , sob Objective - Results Result Diagrams: 01/18/17 14:58 01/18/17 14:58 Recent Labs: Laboratory Last Values WBC 10.0 Th/cmm (4.8-10.8) 01/18/17 14:58 RBC 3.96 Mil/cmm (3.80-5.20) 01/18/17 14:58 Hgb 12.7 gm/dL (11.7-16.1) 01/18/17 14:58 Hct 38.1 % (35.0-45.0) 01/18/17 14:58 MCV 96.3 fl (81-100) 01/18/17 14:58 MCH 32.0 pg (27.0-31.0) H 01/18/17 14:58 MCHC Differential 33.3 pg (28.0-36.0) 01/18/17 14:58 RDW 13.8 % (11.5-20.0) 01/18/17 14:58 Plt Count 228 Th/cmm (150-400) 01/18/17 14:58 MPV 9.6 fl 01/18/17 14:58 Neutrophils % 57.1 % (40.0-80.0) 01/18/17 14:58 Lymphocytes % 30.5 % (20.0-50.0) 01/18/17 14:58 Monocytes % 9.0 % (2.0-10.0) 01/18/17 14:58 Eosinophils % 2.6 % (0.0-5.0) 01/18/17 14:58 Basophils % 0.8 % (0.0-2.0) 01/18/17 14:58 PT 10.3 SECONDS (9.5-11.5) 01/18/17 14:58 INR 0.99 (0.5-1.4) 01/18/17 14:58 PTT (Actin FS) 23.2 SECONDS (26.0-38.0) L 01/18/17 14:58 Sodium 137 mEq/L (136-145) 01/18/17 14:58 Potassium 3.7 mEq/L (3.5-5.1) 01/18/17 14:58 Chloride 107 mEq/L (98-107) 01/18/17 14:58 Carbon Dioxide 25.4 mEq/L (21.0-31.0) 01/18/17 14:58 Anion Gap 8.3 (7.0-16.0) 01/18/17 14:58 BUN 7 mg/dL (7-25) 01/18/17 14:58 Creatinine 0.5 mg/dL (0.6-1.2) L 01/18/17 14:58 Est GFR ( Amer) TNP 01/18/17 14:58 Est GFR (Non-Af Amer) TNP 01/18/17 14:58 BUN/Creatinine Ratio 14.0 01/18/17 14:58 Glucose 114 mg/dL (70-105) H 01/18/17 14:58 Calcium 9.9 mg/dL (8.6-10.3) 01/18/17 14:58 Total Bilirubin 0.4 mg/dL (0.3-1.0) 01/18/17 14:58 AST 17 U/L (13-39) 01/18/17 14:58 ALT 9 U/L (7-52) 01/18/17 14:58 Alkaline Phosphatase 67 U/L (34-104) 01/18/17 14:58 Troponin I 0.01 ng/mL (0.01-0.05) 01/18/17 14:58 Total Protein 6.8 gm/dL (6.0-8.3) 01/18/17 14:58 Albumin 3.8 gm/dL (3.7-5.3) 01/18/17 14:58 Globulin 3.0 gm/dL 01/18/17 14:58 Albumin/Globulin Ratio 1.3 (1.0-1.8) 01/18/17 14:58 Triglycerides 129 mg/dL (<150) 01/18/17 14:58 Cholesterol 185 mg/dL (<200) 01/18/17 14:58 LDL Cholesterol Direct 99 mg/dL (75-193) 01/18/17 14:58 HDL Cholesterol 62 mg/dL (23-92) 01/18/17 14:58 TSH 1.78 uIU/ml (0.34-5.60) 01/18/17 14:58 Urine Source CLEAN C 01/18/17 14:30 Urine Color YELLOW 01/18/17 14:30 Urine Clarity SLIGHT CLOUDY (CLEAR) 01/18/17 14:30 Urine pH 6.5 (4.6 - 8.0) 01/18/17 14:30 Ur Specific [place] 1.015 (1.005-1.030) 01/18/17 14:30 Urine Protein NEGATIVE mg/dL (NEGATIVE) 01/18/17 14:30 Urine Glucose (UA) NEGATIVE mg/dL (NEGATIVE) 01/18/17 14:30 Urine Ketones NEGATIVE mg/dL (NEGATIVE) 01/18/17 14:30 Urine Blood TRACE (NEGATIVE) 01/18/17 14:30 Urine Nitrate NEGATIVE (NEGATIVE) 01/18/17 14:30 Urine Bilirubin NEGATIVE (NEGATIVE) 01/18/17 14:30 Urine Urobilinogen 0.2 E.U./dL (0.2 - 1.0) 01/18/17 14:30 Ur Leukocyte Esterase NEGATIVE (NEGATIVE) 01/18/17 14:30 Urine RBC 0-2 /hpf (0-5) 01/18/17 14:30 Urine WBC 0-2 /hpf (0-5) 01/18/17 14:30 Ur Epithelial Cells MODERATE /lpf (FEW) 01/18/17 14:30 Urine Bacteria MANY /hpf (NONE SEEN) 01/18/17 14:30 RPR NONREACTIVE (NONREACTIVE) 01/18/17 14:58 - Physical Exam Vitals and I&O: Vital Signs Temp 98.1 F 01/23/17 21:16 Pulse 75 01/23/17 21:16 Resp 20 01/23/17 21:16 BP 125/67 01/23/17 21:16 Pulse Ox 95 01/23/17 21:16 Intake & Output 01/23/17 01/23/17 01/24/17 06:59 18:59 06:59 Intake Total 400 Output Total 0 Balance 0 400 Intake: Oral 400 Output: Stool 0 Other: # Voids 2 3 # Bowel Movements 1 Active Medications: Current Medications Acetaminophen (Tylenol) 650 mg PO Q4HR PRN PRN Reason: Mild Pain / Temp above 100 Stop: 03/19/17 19:36 Al Hydrox/Mg Hydrox/Simethicone (Maalox) 30 ml PO Q4HR PRN PRN Reason: GI DISTRESS Stop: 03/19/17 19:36 Docusate Sodium (Colace) 100 mg PO Q24HR PRN PRN Reason: Constipation Stop: 03/19/17 19:59 Folic Acid (Folate) 1 mg PO DAILY JACQUES Stop: 03/20/17 08:59 Last Admin: 01/23/17 08:55 Dose: 1 mg Lorazepam (Ativan) 0.5 mg PO Q4H PRN; Protocol PRN Reason: Anxiety Stop: 03/19/17 18:59 Magnesium Hydroxide (Milk Of Magnesia) 30 ml PO HS PRN PRN Reason: Constipation Ondansetron HCl (Zofran Odt) 4 mg PO Q6H PRN PRN Reason: Nausea / Vomiting Stop: 03/19/17 19:51 Potassium Chloride (Klor-Con) 10 meq PO DAILY JACQUES Stop: 03/20/17 08:59 Last Admin: 01/23/17 08:55 Dose: 10 meq Sertraline HCl (Zoloft) 75 mg PO DAILY JACQUES PRN Reason: Protocol Stop: 03/24/17 10:34 Thiamine HCl (Vitamin B1) 100 mg PO DAILY JACQUES Stop: 03/20/17 08:59 Last Admin: 01/23/17 08:55 Dose: 100 mg Tramadol HCl (Ultram) 50 mg PO Q8HR PRN PRN Reason: PAIN Stop: 03/19/17 19:46 Zolpidem Tartrate (Ambien) 5 mg PO HS PRN PRN Reason: Insomnia Stop: 03/19/17 19:36 General: No acute distress HEENT: Atraumatic Cardiovascular: Regular rate, Normal S1, Normal S2 Assessment/Plan - Problem List Patient Problems: All Active Problems DEPRESSION WITH SUICIDAL IDEATION (Acute) - Plan Plan: monitor vital/diet labs f/up consultants Nutritional Asmnt/Malnutr-PDOC - Dietary Evaluation Malnutrition Findings (Please click <Entered> for more info): Nutritional Asmnt/Malnutrition Start: 01/22/17 18: 16 Text: Status: Complete Freq: Document 01/22/17 18:16 [facility] (Rec: 01/22/17 18:22 [facility] [id number]) Nutritional Asmnt/Malnutrition Patient General Information Nutritional Screening Moderate Risk Screening Diagnosis Rule otu dementia, rule out major depression Pertinent Medical Hx/Surgical Hx Dementia, ESRD, alcohol abuse Subjective Information Pt is a 76-year-old female from [facility] admitted with chief complaint of depression and being suicidal. Pt was awake and alert during time of visit. Pt is a good historian. Pt reports having a good appetite prior to admit. Pt states she appreciates the ground textured diet provided and she is able tolerate meals. PT wears dentures. Pt reports hx of having 6 inches of intestines surgically removed and so she cannot eat large portions. Pt reports UBW 125# of years. Pt appears well nourished with no signs of muscle or fat depletion. Current Diet Order/ Nutrition Support Mechanical soft ground, HAMZAH, low fat, low cholesterol Patient / S.O Can Pertinent Medications Folate, Klor-Con, Vitamin B1 Pertinent Labs Reviewed Nutritional Hx/Data Height 1.63 m Height (Calculated Centimeters) 162.6 Current Weight (lbs) 54.567 kg Weight (Calculated Kilograms) 54.6 Weight (Calculated Grams) 81939.2 Usual body Weight (lbs) 125 % Usual Body Weight 96 [place] Body Weight 120 % [place] Body Weight 100 Recent Weight Change No Weight Status Approriate GI Symptoms GI Symptoms None Difficult in: Chewing Food Allergies No Cultural/Ethnic/Confucianist Belief No cultural or mormon beliefs provided. Pt receives fresh fruits and breakfast and lunch. Usual diet at home HAMZAH, low fat, low cholesterol Skin Integrity/Comment: [place] 20. Skin intact. Current %PO Fair (50-74%) Estimated Nutritional Goals BEE in Kcals: Using Current wt Calories/Kcals/Kg Based on current wt 54.7 kg Kcals Calculated 2565-4297 kcals/day (25-30 kcals/kg) Protein: Using Current wt Protein g/kg: Based on current wt 54.7 kg Protein Calculated 55 gm/day (1 gm/kg) Fluid: ml 4320-6001 ml/day (30-35 ml/kg) Nutritional Problem 1. Problem Problem No nutritional problems at this time. Malnutrition Alert Protein-Calorie Malnutrition N/A Is there a minimum of two criteria No selected? Query Text:Check all the applicable criteria. A minimum of two criteria are recommended for diagnosis of either severe or non-severe malnutrition. Malnutrition Related to Morbid Obesity Malnutrition related to morbid obesity No Intervention/Recommendation Comments 1. Continue with current diet as tolerated. 2. If PO intake decreases due to early satiety, recommend six small meals per day for better tolerance. Expected Outcomes/Goals Expected Outcomes/Goals Have pt meet at least 75% of estimated nutritional needs. Physician Parameters for PEM Normal Weight % 90% - 110% (Normal) Body Mass Index (BMI) 19 - 24 (Normal) Serum Albumin (g/dl) 3.5 - 5.0 (Normal)
[2017-01-24] MEDS: Potassium Chloride 10 mEq ER Tab PO SCH (08:53)
--- NOTE | 2017-01-24 17:06 | Progress Notes ---
DATE: 01/24/2017 SUBJECTIVE: Chart reviewed and the patient interviewed. Also discussed the patient's condition with the staff and reviewed records and labs. The patient is still anxious. The patient also still she is still slightly confused. She also still asking for her belongings and she still needs lots of redirections. Also, her ability to understand continued to decline. She also still depressed and she is still having sad affect. Otherwise, the patient is compliant with taking her medications with no side effects of medications. ASSESSMENT: The patient is still confused and psychotic. TREATMENT PLAN: Continue Zoloft 75 mg every day. Also, continue working on behavioral modification and adjusting psychotropic medications and continue to follow up. [facility]# [id number]
[2017-01-25] MEDS: Potassium Chloride 10 mEq ER Tab PO SCH (08:11)
--- NOTE | 2017-01-25 20:40 | Progress Notes ---
DATE: 01/25/2017 SUBJECTIVE: The patient seen, chart reviewed, and discussed with staff. The patient seems to be improving. Staff noting she does have some confusional episodes, poor memory, asking for belongings, things that she is leaving today, tells me that she is going to go live with her son. Her son actually did call and I did call him back and left a voice message at [phone]. The patient is sleeping well, eating well, still states she is depressed and cries, but denying any SI at this time. Concerns about grave disability. Medications were reviewed. No overt side effects. ASSESSMENT: The patient remains disoriented, poor memory, depressed. Noted to have cognitive decline. Concerns for safety, basic food, clothing and residential, but no overt suicidal ideation. PLAN: Continue medications at current dose. We will currently await a call back from her. JOB# [id number]
[2017-01-26] MEDS: Potassium Chloride 10 mEq ER Tab PO SCH (08:29)
--- NOTE | 2017-01-26 09:35 | General Progress Note ---
Subjective - Review of Systems Events since last encounter: patient still c/o feeling depressed as per staff patient cries at times denies any sob, chest pain Objective - Results Result Diagrams: 01/18/17 14:58 01/18/17 14:58 Recent Labs: Laboratory Last Values WBC 10.0 Th/cmm (4.8-10.8) 01/18/17 14:58 RBC 3.96 Mil/cmm (3.80-5.20) 01/18/17 14:58 Hgb 12.7 gm/dL (11.7-16.1) 01/18/17 14:58 Hct 38.1 % (35.0-45.0) 01/18/17 14:58 MCV 96.3 fl (81-100) 01/18/17 14:58 MCH 32.0 pg (27.0-31.0) H 01/18/17 14:58 MCHC Differential 33.3 pg (28.0-36.0) 01/18/17 14:58 RDW 13.8 % (11.5-20.0) 01/18/17 14:58 Plt Count 228 Th/cmm (150-400) 01/18/17 14:58 MPV 9.6 fl 01/18/17 14:58 Neutrophils % 57.1 % (40.0-80.0) 01/18/17 14:58 Lymphocytes % 30.5 % (20.0-50.0) 01/18/17 14:58 Monocytes % 9.0 % (2.0-10.0) 01/18/17 14:58 Eosinophils % 2.6 % (0.0-5.0) 01/18/17 14:58 Basophils % 0.8 % (0.0-2.0) 01/18/17 14:58 PT 10.3 SECONDS (9.5-11.5) 01/18/17 14:58 INR 0.99 (0.5-1.4) 01/18/17 14:58 PTT (Actin FS) 23.2 SECONDS (26.0-38.0) L 01/18/17 14:58 Sodium 137 mEq/L (136-145) 01/18/17 14:58 Potassium 3.7 mEq/L (3.5-5.1) 01/18/17 14:58 Chloride 107 mEq/L (98-107) 01/18/17 14:58 Carbon Dioxide 25.4 mEq/L (21.0-31.0) 01/18/17 14:58 Anion Gap 8.3 (7.0-16.0) 01/18/17 14:58 BUN 7 mg/dL (7-25) 01/18/17 14:58 Creatinine 0.5 mg/dL (0.6-1.2) L 01/18/17 14:58 Est GFR ( Amer) TNP 01/18/17 14:58 Est GFR (Non-Af Amer) TNP 01/18/17 14:58 BUN/Creatinine Ratio 14.0 01/18/17 14:58 Glucose 114 mg/dL (70-105) H 01/18/17 14:58 Calcium 9.9 mg/dL (8.6-10.3) 01/18/17 14:58 Total Bilirubin 0.4 mg/dL (0.3-1.0) 01/18/17 14:58 AST 17 U/L (13-39) 01/18/17 14:58 ALT 9 U/L (7-52) 01/18/17 14:58 Alkaline Phosphatase 67 U/L (34-104) 01/18/17 14:58 Troponin I 0.01 ng/mL (0.01-0.05) 01/18/17 14:58 Total Protein 6.8 gm/dL (6.0-8.3) 01/18/17 14:58 Albumin 3.8 gm/dL (3.7-5.3) 01/18/17 14:58 Globulin 3.0 gm/dL 01/18/17 14:58 Albumin/Globulin Ratio 1.3 (1.0-1.8) 01/18/17 14:58 Triglycerides 129 mg/dL (<150) 01/18/17 14:58 Cholesterol 185 mg/dL (<200) 01/18/17 14:58 LDL Cholesterol Direct 99 mg/dL (75-193) 01/18/17 14:58 HDL Cholesterol 62 mg/dL (23-92) 01/18/17 14:58 TSH 1.78 uIU/ml (0.34-5.60) 01/18/17 14:58 Urine Source CLEAN C 01/18/17 14:30 Urine Color YELLOW 01/18/17 14:30 Urine Clarity SLIGHT CLOUDY (CLEAR) 01/18/17 14:30 Urine pH 6.5 (4.6 - 8.0) 01/18/17 14:30 Ur Specific [place] 1.015 (1.005-1.030) 01/18/17 14:30 Urine Protein NEGATIVE mg/dL (NEGATIVE) 01/18/17 14:30 Urine Glucose (UA) NEGATIVE mg/dL (NEGATIVE) 01/18/17 14:30 Urine Ketones NEGATIVE mg/dL (NEGATIVE) 01/18/17 14:30 Urine Blood TRACE (NEGATIVE) 01/18/17 14:30 Urine Nitrate NEGATIVE (NEGATIVE) 01/18/17 14:30 Urine Bilirubin NEGATIVE (NEGATIVE) 01/18/17 14:30 Urine Urobilinogen 0.2 E.U./dL (0.2 - 1.0) 01/18/17 14:30 Ur Leukocyte Esterase NEGATIVE (NEGATIVE) 01/18/17 14:30 Urine RBC 0-2 /hpf (0-5) 01/18/17 14:30 Urine WBC 0-2 /hpf (0-5) 01/18/17 14:30 Ur Epithelial Cells MODERATE /lpf (FEW) 01/18/17 14:30 Urine Bacteria MANY /hpf (NONE SEEN) 01/18/17 14:30 RPR NONREACTIVE (NONREACTIVE) 01/18/17 14:58 - Physical Exam Vitals and I&O: Vital Signs Temp 98.9 F 01/26/17 06:43 Pulse 72 01/26/17 06:43 Resp 19 01/26/17 06:43 BP 112/66 01/26/17 06:43 Pulse Ox 97 01/26/17 06:43 Intake & Output 01/25/17 01/26/17 01/26/17 18:59 06:59 18:59 Intake Total 1800 240 Balance 1800 240 Weight (lbs) 54.567 kg Intake: Oral 1800 240 Other: # Voids 4 3 # Bowel Movements 1 0 Active Medications: Current Medications Acetaminophen (Tylenol) 650 mg PO Q4HR PRN PRN Reason: Mild Pain / Temp above 100 Stop: 03/19/17 19:36 Al Hydrox/Mg Hydrox/Simethicone (Maalox) 30 ml PO Q4HR PRN PRN Reason: GI DISTRESS Stop: 03/19/17 19:36 Docusate Sodium (Colace) 100 mg PO Q24HR PRN PRN Reason: Constipation Stop: 03/19/17 19:59 Donepezil HCl (Aricept) 5 mg PO DAILY [facility]AC[facility] Stop: 03/27/17 08:59 Last Admin: 01/26/17 08:29 Dose: 5 mg Folic Acid (Folate) 1 mg PO DAILY JACQU[facility] Stop: 03/20/17 08:59 Last Admin: 01/26/17 08:29 Dose: 1 mg Lorazepam (Ativan) 1 mg PO Q6H PRN; Protocol PRN Reason: Anxiety Stop: 03/25/17 14:50 Last Admin: 01/26/17 08:30 Dose: 1 mg Magnesium Hydroxide (Milk Of Magnesia) 30 ml PO HS PRN PRN Reason: Constipation Ondansetron HCl (Zofran Odt) 4 mg PO Q6H PRN PRN Reason: Nausea / Vomiting Stop: 03/19/17 19:51 Potassium Chloride (Klor-Con) 10 meq PO DAILY JACQUES Stop: 03/20/17 08:59 Last Admin: 01/26/17 08:29 Dose: 10 meq Sertraline HCl (Zoloft) 75 mg PO DAILY [facility]AC[facility] PRN Reason: Protocol Stop: 03/24/17 10:34 Last Admin: 01/26/17 08:29 Dose: 75 mg Thiamine HCl (Vitamin B1) 100 mg PO DAILY JAC[facility] Stop: 03/20/17 08:59 Last Admin: 01/26/17 08:29 Dose: 100 mg Tramadol HCl (Ultram) 50 mg PO Q8HR PRN PRN Reason: PAIN Stop: 03/19/17 19:46 Zolpidem Tartrate (Ambien) 5 mg PO HS PRN PRN Reason: Insomnia Stop: 03/19/17 19:36 General: No acute distress HEENT: Atraumatic Cardiovascular: Regular rate, Normal S1, Normal S2 Assessment/Plan - Problem List Patient Problems: All Active Problems DEPRESSION WITH SUICIDAL IDEATION (Acute) - Plan Plan: monitor vital/diet labs f/up consultants Nutritional Asmnt/Malnutr-PDOC - Dietary Evaluation Malnutrition Findings (Please click <Entered> for more info): Nutritional Asmnt/Malnutrition Start: 01/22/17 18: 16 Text: Status: Complete Freq: Document 01/22/17 18:16 [facility] (Rec: 01/22/17 18:22 [facility] [id number]) Nutritional Asmnt/Malnutrition Patient General Information Nutritional Screening Moderate Risk Screening Diagnosis Rule otu dementia, rule out major depression Pertinent Medical Hx/Surgical Hx Dementia, ESRD, alcohol abuse Subjective Information Pt is a 76-year-old female from [facility] admitted with chief complaint of depression and being suicidal. Pt was awake and alert during time of visit. Pt is a good historian. Pt reports having a good appetite prior to admit. Pt states she appreciates the ground textured diet provided and she is able tolerate meals. PT wears dentures. Pt reports hx of having 6 inches of intestines surgically removed and so she cannot eat large portions. Pt reports UBW 125# of years. Pt appears well nourished with no signs of muscle or fat depletion. Current Diet Order/ Nutrition Support Mechanical soft ground, HAMZAH, low fat, low cholesterol Patient / S.O Can Pertinent Medications Folate, Klor-Con, Vitamin B1 Pertinent Labs Reviewed Nutritional Hx/Data Height 1.63 m Height (Calculated Centimeters) 162.6 Current Weight (lbs) 54.567 kg Weight (Calculated Kilograms) 54.6 Weight (Calculated Grams) 25935.2 Usual body Weight (lbs) 125 % Usual Body Weight 96 [place] Body Weight 120 % [place] Body Weight 100 Recent Weight Change No Weight Status Approriate GI Symptoms GI Symptoms None Difficult in: Chewing Food Allergies No Cultural/Ethnic/Anabaptist Belief No cultural or gnosticist beliefs provided. Pt receives fresh fruits and breakfast and lunch. Usual diet at home HAMZAH, low fat, low cholesterol Skin Integrity/Comment: Stone 20. Skin intact. Current %PO Fair (50-74%) Estimated Nutritional Goals BEE in Kcals: Using Current wt Calories/Kcals/Kg Based on current wt 54.7 kg Kcals Calculated 6536-3466 kcals/day (25-30 kcals/kg) Protein: Using Current wt Protein g/kg: Based on current wt 54.7 kg Protein Calculated 55 gm/day (1 gm/kg) Fluid: ml 6970-8397 ml/day (30-35 ml/kg) Nutritional Problem 1. Problem Problem No nutritional problems at this time. Malnutrition Alert Protein-Calorie Malnutrition N/A Is there a minimum of two criteria No selected? Query Text:Check all the applicable criteria. A minimum of two criteria are recommended for diagnosis of either severe or non-severe malnutrition. Malnutrition Related to Morbid Obesity Malnutrition related to morbid obesity No Intervention/Recommendation Comments 1. Continue with current diet as tolerated. 2. If PO intake decreases due to early satiety, recommend six small meals per day for better tolerance. Expected Outcomes/Goals Expected Outcomes/Goals Have pt meet at least 75% of estimated nutritional needs. Physician Parameters for PEM Normal Weight % 90% - 110% (Normal) Body Mass Index (BMI) 19 - 24 (Normal) Serum Albumin (g/dl) 3.5 - 5.0 (Normal)
--- NOTE | 2017-01-26 19:02 | Progress Notes ---
DATE: 01/26/2017 SUBJECTIVE: The patient was seen, chart reviewed, and discussed with staff. The patient remains depressed, hopeless, states that she does not want to live anymore, that she is suicidal, psychological " I am so depressed." The patient remains somewhat confused. Her mood seems to be quite labile at times, wandering behaviors. I have tried to get in touch with the son a few times, I just left a message about 10 minutes ago, currently pending a call back. The patient currently on Sertraline. Sleeping fairly well. She is pretty withdrawn. ASSESSMENT: The patient remains symptomatic, depressed, withdrawn, overwhelmed, suicidal, not yulissa for safety. PLAN: We will continue to monitor. The patient is not safe for a lower level of care. JOB# [id number]
[2017-01-27] MEDS: Potassium Chloride 10 mEq ER Tab PO SCH (08:08)
--- NOTE | 2017-01-27 14:36 | General Progress Note ---
Subjective - Review of Systems Events since last encounter: patient continue to be depressed withdraw , no distress Objective - Results Result Diagrams: 01/18/17 14:58 01/18/17 14:58 Recent Labs: Laboratory Last Values WBC 10.0 Th/cmm (4.8-10.8) 01/18/17 14:58 RBC 3.96 Mil/cmm (3.80-5.20) 01/18/17 14:58 Hgb 12.7 gm/dL (11.7-16.1) 01/18/17 14:58 Hct 38.1 % (35.0-45.0) 01/18/17 14:58 MCV 96.3 fl (81-100) 01/18/17 14:58 MCH 32.0 pg (27.0-31.0) H 01/18/17 14:58 MCHC Differential 33.3 pg (28.0-36.0) 01/18/17 14:58 RDW 13.8 % (11.5-20.0) 01/18/17 14:58 Plt Count 228 Th/cmm (150-400) 01/18/17 14:58 MPV 9.6 fl 01/18/17 14:58 Neutrophils % 57.1 % (40.0-80.0) 01/18/17 14:58 Lymphocytes % 30.5 % (20.0-50.0) 01/18/17 14:58 Monocytes % 9.0 % (2.0-10.0) 01/18/17 14:58 Eosinophils % 2.6 % (0.0-5.0) 01/18/17 14:58 Basophils % 0.8 % (0.0-2.0) 01/18/17 14:58 PT 10.3 SECONDS (9.5-11.5) 01/18/17 14:58 INR 0.99 (0.5-1.4) 01/18/17 14:58 PTT (Actin FS) 23.2 SECONDS (26.0-38.0) L 01/18/17 14:58 Sodium 137 mEq/L (136-145) 01/18/17 14:58 Potassium 3.7 mEq/L (3.5-5.1) 01/18/17 14:58 Chloride 107 mEq/L (98-107) 01/18/17 14:58 Carbon Dioxide 25.4 mEq/L (21.0-31.0) 01/18/17 14:58 Anion Gap 8.3 (7.0-16.0) 01/18/17 14:58 BUN 7 mg/dL (7-25) 01/18/17 14:58 Creatinine 0.5 mg/dL (0.6-1.2) L 01/18/17 14:58 Est GFR ( Amer) TNP 01/18/17 14:58 Est GFR (Non-Af Amer) TNP 01/18/17 14:58 BUN/Creatinine Ratio 14.0 01/18/17 14:58 Glucose 114 mg/dL (70-105) H 01/18/17 14:58 Calcium 9.9 mg/dL (8.6-10.3) 01/18/17 14:58 Total Bilirubin 0.4 mg/dL (0.3-1.0) 01/18/17 14:58 AST 17 U/L (13-39) 01/18/17 14:58 ALT 9 U/L (7-52) 01/18/17 14:58 Alkaline Phosphatase 67 U/L (34-104) 01/18/17 14:58 Troponin I 0.01 ng/mL (0.01-0.05) 01/18/17 14:58 Total Protein 6.8 gm/dL (6.0-8.3) 01/18/17 14:58 Albumin 3.8 gm/dL (3.7-5.3) 01/18/17 14:58 Globulin 3.0 gm/dL 01/18/17 14:58 Albumin/Globulin Ratio 1.3 (1.0-1.8) 01/18/17 14:58 Triglycerides 129 mg/dL (<150) 01/18/17 14:58 Cholesterol 185 mg/dL (<200) 01/18/17 14:58 LDL Cholesterol Direct 99 mg/dL (75-193) 01/18/17 14:58 HDL Cholesterol 62 mg/dL (23-92) 01/18/17 14:58 TSH 1.78 uIU/ml (0.34-5.60) 01/18/17 14:58 Urine Source CLEAN C 01/18/17 14:30 Urine Color YELLOW 01/18/17 14:30 Urine Clarity SLIGHT CLOUDY (CLEAR) 01/18/17 14:30 Urine pH 6.5 (4.6 - 8.0) 01/18/17 14:30 Ur Specific [place] 1.015 (1.005-1.030) 01/18/17 14:30 Urine Protein NEGATIVE mg/dL (NEGATIVE) 01/18/17 14:30 Urine Glucose (UA) NEGATIVE mg/dL (NEGATIVE) 01/18/17 14:30 Urine Ketones NEGATIVE mg/dL (NEGATIVE) 01/18/17 14:30 Urine Blood TRACE (NEGATIVE) 01/18/17 14:30 Urine Nitrate NEGATIVE (NEGATIVE) 01/18/17 14:30 Urine Bilirubin NEGATIVE (NEGATIVE) 01/18/17 14:30 Urine Urobilinogen 0.2 E.U./dL (0.2 - 1.0) 01/18/17 14:30 Ur Leukocyte Esterase NEGATIVE (NEGATIVE) 01/18/17 14:30 Urine RBC 0-2 /hpf (0-5) 01/18/17 14:30 Urine WBC 0-2 /hpf (0-5) 01/18/17 14:30 Ur Epithelial Cells MODERATE /lpf (FEW) 01/18/17 14:30 Urine Bacteria MANY /hpf (NONE SEEN) 01/18/17 14:30 RPR NONREACTIVE (NONREACTIVE) 01/18/17 14:58 - Physical Exam Vitals and I&O: Vital Signs Temp 98.5 F 01/27/17 05:29 Pulse 66 01/27/17 05:29 Resp 20 01/27/17 05:29 BP 131/66 01/27/17 05:29 Pulse Ox 98 01/27/17 05:29 Intake & Output 01/26/17 01/27/17 01/27/17 18:59 06:59 18:59 Other: # Voids 1 # Bowel Movements 1 Active Medications: Current Medications Acetaminophen (Tylenol) 650 mg PO Q4HR PRN PRN Reason: Mild Pain / Temp above 100 Stop: 03/19/17 19:36 Al Hydrox/Mg Hydrox/Simethicone (Maalox) 30 ml PO Q4HR PRN PRN Reason: GI DISTRESS Stop: 03/19/17 19:36 Docusate Sodium (Colace) 100 mg PO Q24HR PRN PRN Reason: Constipation Stop: 03/19/17 19:59 Donepezil HCl (Aricept) 5 mg PO DAILY [facility] Stop: 03/27/17 08:59 Last Admin: 01/27/17 08:08 Dose: 5 mg Folic Acid (Folate) 1 mg PO DAILY JACQUES Stop: 03/20/17 08:59 Last Admin: 01/27/17 08:08 Dose: 1 mg Lorazepam (Ativan) 1 mg PO Q6H PRN; Protocol PRN Reason: Anxiety Stop: 03/25/17 14:50 Last Admin: 01/26/17 14:53 Dose: 1 mg Magnesium Hydroxide (Milk Of Magnesia) 30 ml PO HS PRN PRN Reason: Constipation Ondansetron HCl (Zofran Odt) 4 mg PO Q6H PRN PRN Reason: Nausea / Vomiting Stop: 03/19/17 19:51 Potassium Chloride (Klor-Con) 10 meq PO DAILY JACQUES Stop: 03/20/17 08:59 Last Admin: 01/27/17 08:08 Dose: 10 meq Sertraline HCl (Zoloft) 75 mg PO DAILY JACQUES PRN Reason: Protocol Stop: 03/24/17 10:34 Last Admin: 01/27/17 08:07 Dose: 75 mg Thiamine HCl (Vitamin B1) 100 mg PO DAILY JACQUES Stop: 03/20/17 08:59 Last Admin: 01/27/17 08:08 Dose: 100 mg Tramadol HCl (Ultram) 50 mg PO Q8HR PRN PRN Reason: PAIN Stop: 03/19/17 19:46 Zolpidem Tartrate (Ambien) 5 mg PO HS PRN PRN Reason: Insomnia Stop: 03/19/17 19:36 General: No acute distress HEENT: Atraumatic Cardiovascular: Regular rate, Normal S1, Normal S2 Assessment/Plan - Problem List Patient Problems: All Active Problems DEPRESSION WITH SUICIDAL IDEATION (Acute) - Plan Plan: monitor vital/diet labs f/up consultants Nutritional Asmnt/Malnutr-PDOC - Dietary Evaluation Malnutrition Findings (Please click <Entered> for more info): Nutritional Asmnt/Malnutrition Start: 01/22/17 18: 16 Text: Status: Complete Freq: Document 01/22/17 18:16 [facility] (Rec: 01/22/17 18:22 [facility] [id number]) Nutritional Asmnt/Malnutrition Patient General Information Nutritional Screening Moderate Risk Screening Diagnosis Rule otu dementia, rule out major depression Pertinent Medical Hx/Surgical Hx Dementia, ESRD, alcohol abuse Subjective Information Pt is a 76-year-old female from [facility] admitted with chief complaint of depression and being suicidal. Pt was awake and alert during time of visit. Pt is a good historian. Pt reports having a good appetite prior to admit. Pt states she appreciates the ground textured diet provided and she is able tolerate meals. PT wears dentures. Pt reports hx of having 6 inches of intestines surgically removed and so she cannot eat large portions. Pt reports UBW 125# of years. Pt appears well nourished with no signs of muscle or fat depletion. Current Diet Order/ Nutrition Support Mechanical soft ground, HAMZAH, low fat, low cholesterol Patient / S.O Can Pertinent Medications Folate, Klor-Con, Vitamin B1 Pertinent Labs Reviewed Nutritional Hx/Data Height 1.63 m Height (Calculated Centimeters) 162.6 Current Weight (lbs) 54.567 kg Weight (Calculated Kilograms) 54.6 Weight (Calculated Grams) 27695.2 Usual body Weight (lbs) 125 % Usual Body Weight 96 [place] Body Weight 120 % [place] Body Weight 100 Recent Weight Change No Weight Status Approriate GI Symptoms GI Symptoms None Difficult in: Chewing Food Allergies No Cultural/Ethnic/Gnosticism Belief No cultural or caodaism beliefs provided. Pt receives fresh fruits and breakfast and lunch. Usual diet at home HAMZAH, low fat, low cholesterol Skin Integrity/Comment: [place] 20. Skin intact. Current %PO Fair (50-74%) Estimated Nutritional Goals BEE in Kcals: Using Current wt Calories/Kcals/Kg Based on current wt 54.7 kg Kcals Calculated 8721-6463 kcals/day (25-30 kcals/kg) Protein: Using Current wt Protein g/kg: Based on current wt 54.7 kg Protein Calculated 55 gm/day (1 gm/kg) Fluid: ml 9244-2160 ml/day (30-35 ml/kg) Nutritional Problem 1. Problem Problem No nutritional problems at this time. Malnutrition Alert Protein-Calorie Malnutrition N/A Is there a minimum of two criteria No selected? Query Text:Check all the applicable criteria. A minimum of two criteria are recommended for diagnosis of either severe or non-severe malnutrition. Malnutrition Related to Morbid Obesity Malnutrition related to morbid obesity No Intervention/Recommendation Comments 1. Continue with current diet as tolerated. 2. If PO intake decreases due to early satiety, recommend six small meals per day for better tolerance. Expected Outcomes/Goals Expected Outcomes/Goals Have pt meet at least 75% of estimated nutritional needs. Physician Parameters for PEM Normal Weight % 90% - 110% (Normal) Body Mass Index (BMI) 19 - 24 (Normal) Serum Albumin (g/dl) 3.5 - 5.0 (Normal)
--- NOTE | 2017-01-28 06:52 | Progress Notes ---
DATE: 01/27/2017 SUBJECTIVE: The patient seen, chart reviewed, discussed with staff. I saw the patient yesterday, she was alluding to wanting to and kill herself, severe depression, helplessness. Today she does not recall any of that conversation, stating that the time that I came yesterday, her son was at bedside, which is completely untrue and false, and she has a pretty poor memory. The patient is alluding to depression today. She alludes to symptoms of melancholy and sadness, but is denying any overt SI. Sleep is fair. She is pretty withdrawn, isolative, eating with prompting, ADLs with prompting. ASSESSMENT: The patient remains symptomatic, depressed, fluctuating mood, fluctuating memories. PLAN: We will continue to monitor and adjust medications. Given the severity of her ongoing depressive symptoms, she was not safe for discharge. I did make an effort to call son yesterday. I am still waiting a call back. [facility]# [id number]
--- NOTE | 2017-01-28 08:14 | Diagnostic Imaging Report ---
Left wrist (3 views, portable) HISTORY: Swelling The exam demonstrates severe arthritic changes with marked narrowing about the first carpal metacarpal joint. Severe deformity which appears chronic involving the base of the first metacarpal that is associated with subluxation. Hypertrophic bone formation. No acute bony abnormalities. No definite fractures. IMPRESSION: 1. 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
[2017-01-28] MEDS: Potassium Chloride 10 mEq ER Tab PO SCH ×2 (09:32→09:36)
--- NOTE | 2017-01-28 10:24 | General Progress Note ---
Subjective - Review of Systems Events since last encounter: no change patient with depressed mood Objective - Results Result Diagrams: 01/18/17 14:58 01/18/17 14:58 Recent Labs: Laboratory Last Values WBC 10.0 Th/cmm (4.8-10.8) 01/18/17 14:58 RBC 3.96 Mil/cmm (3.80-5.20) 01/18/17 14:58 Hgb 12.7 gm/dL (11.7-16.1) 01/18/17 14:58 Hct 38.1 % (35.0-45.0) 01/18/17 14:58 MCV 96.3 fl (81-100) 01/18/17 14:58 MCH 32.0 pg (27.0-31.0) H 01/18/17 14:58 MCHC Differential 33.3 pg (28.0-36.0) 01/18/17 14:58 RDW 13.8 % (11.5-20.0) 01/18/17 14:58 Plt Count 228 Th/cmm (150-400) 01/18/17 14:58 MPV 9.6 fl 01/18/17 14:58 Neutrophils % 57.1 % (40.0-80.0) 01/18/17 14:58 Lymphocytes % 30.5 % (20.0-50.0) 01/18/17 14:58 Monocytes % 9.0 % (2.0-10.0) 01/18/17 14:58 Eosinophils % 2.6 % (0.0-5.0) 01/18/17 14:58 Basophils % 0.8 % (0.0-2.0) 01/18/17 14:58 PT 10.3 SECONDS (9.5-11.5) 01/18/17 14:58 INR 0.99 (0.5-1.4) 01/18/17 14:58 PTT (Actin FS) 23.2 SECONDS (26.0-38.0) L 01/18/17 14:58 Sodium 137 mEq/L (136-145) 01/18/17 14:58 Potassium 3.7 mEq/L (3.5-5.1) 01/18/17 14:58 Chloride 107 mEq/L (98-107) 01/18/17 14:58 Carbon Dioxide 25.4 mEq/L (21.0-31.0) 01/18/17 14:58 Anion Gap 8.3 (7.0-16.0) 01/18/17 14:58 BUN 7 mg/dL (7-25) 01/18/17 14:58 Creatinine 0.5 mg/dL (0.6-1.2) L 01/18/17 14:58 Est GFR ( Amer) TNP 01/18/17 14:58 Est GFR (Non-Af Amer) TNP 01/18/17 14:58 BUN/Creatinine Ratio 14.0 01/18/17 14:58 Glucose 114 mg/dL (70-105) H 01/18/17 14:58 Calcium 9.9 mg/dL (8.6-10.3) 01/18/17 14:58 Total Bilirubin 0.4 mg/dL (0.3-1.0) 01/18/17 14:58 AST 17 U/L (13-39) 01/18/17 14:58 ALT 9 U/L (7-52) 01/18/17 14:58 Alkaline Phosphatase 67 U/L (34-104) 01/18/17 14:58 Troponin I 0.01 ng/mL (0.01-0.05) 01/18/17 14:58 Total Protein 6.8 gm/dL (6.0-8.3) 01/18/17 14:58 Albumin 3.8 gm/dL (3.7-5.3) 01/18/17 14:58 Globulin 3.0 gm/dL 01/18/17 14:58 Albumin/Globulin Ratio 1.3 (1.0-1.8) 01/18/17 14:58 Triglycerides 129 mg/dL (<150) 01/18/17 14:58 Cholesterol 185 mg/dL (<200) 01/18/17 14:58 LDL Cholesterol Direct 99 mg/dL (75-193) 01/18/17 14:58 HDL Cholesterol 62 mg/dL (23-92) 01/18/17 14:58 TSH 1.78 uIU/ml (0.34-5.60) 01/18/17 14:58 Urine Source CLEAN C 01/18/17 14:30 Urine Color YELLOW 01/18/17 14:30 Urine Clarity SLIGHT CLOUDY (CLEAR) 01/18/17 14:30 Urine pH 6.5 (4.6 - 8.0) 01/18/17 14:30 Ur Specific [place] 1.015 (1.005-1.030) 01/18/17 14:30 Urine Protein NEGATIVE mg/dL (NEGATIVE) 01/18/17 14:30 Urine Glucose (UA) NEGATIVE mg/dL (NEGATIVE) 01/18/17 14:30 Urine Ketones NEGATIVE mg/dL (NEGATIVE) 01/18/17 14:30 Urine Blood TRACE (NEGATIVE) 01/18/17 14:30 Urine Nitrate NEGATIVE (NEGATIVE) 01/18/17 14:30 Urine Bilirubin NEGATIVE (NEGATIVE) 01/18/17 14:30 Urine Urobilinogen 0.2 E.U./dL (0.2 - 1.0) 01/18/17 14:30 Ur Leukocyte Esterase NEGATIVE (NEGATIVE) 01/18/17 14:30 Urine RBC 0-2 /hpf (0-5) 01/18/17 14:30 Urine WBC 0-2 /hpf (0-5) 01/18/17 14:30 Ur Epithelial Cells MODERATE /lpf (FEW) 01/18/17 14:30 Urine Bacteria MANY /hpf (NONE SEEN) 01/18/17 14:30 RPR NONREACTIVE (NONREACTIVE) 01/18/17 14:58 - Physical Exam Vitals and I&O: Vital Signs Temp 98 F 01/28/17 06:47 Pulse 66 01/28/17 06:47 Resp 19 01/28/17 06:47 BP 118/61 01/28/17 06:47 Pulse Ox 95 01/28/17 06:47 Intake & Output 01/27/17 01/28/17 01/28/17 18:59 06:59 18:59 Intake Total 850 120 Balance 850 120 Intake: Oral 850 120 Other: # Voids 2 2 # Bowel Movements 1 Active Medications: Current Medications Acetaminophen (Tylenol) 650 mg PO Q4HR PRN PRN Reason: Mild Pain / Temp above 100 Stop: 03/19/17 19:36 Al Hydrox/Mg Hydrox/Simethicone (Maalox) 30 ml PO Q4HR PRN PRN Reason: GI DISTRESS Stop: 03/19/17 19:36 Docusate Sodium (Colace) 100 mg PO Q24HR PRN PRN Reason: Constipation Stop: 03/19/17 19:59 Donepezil HCl (Aricept) 5 mg PO DAILY JACQUES Stop: 03/27/17 08:59 Last Admin: 01/28/17 09:36 Dose: Not Given Folic Acid (Folate) 1 mg PO DAILY JACQUES Stop: 03/20/17 08:59 Last Admin: 01/28/17 09:36 Dose: Not Given Lorazepam (Ativan) 1 mg PO Q6H PRN; Protocol PRN Reason: Anxiety Stop: 03/25/17 14:50 Last Admin: 01/26/17 14:53 Dose: 1 mg Magnesium Hydroxide (Milk Of Magnesia) 30 ml PO HS PRN PRN Reason: Constipation Ondansetron HCl (Zofran Odt) 4 mg PO Q6H PRN PRN Reason: Nausea / Vomiting Stop: 03/19/17 19:51 Potassium Chloride (Klor-Con) 10 meq PO DAILY JACQUES Stop: 03/20/17 08:59 Last Admin: 01/28/17 09:36 Dose: Not Given Sertraline HCl (Zoloft) 75 mg PO DAILY JACQUES PRN Reason: Protocol Stop: 03/24/17 10:34 Last Admin: 01/28/17 09:36 Dose: Not Given Thiamine HCl (Vitamin B1) 100 mg PO DAILY JACQUES Stop: 03/20/17 08:59 Last Admin: 01/28/17 09:36 Dose: Not Given Tramadol HCl (Ultram) 50 mg PO Q8HR PRN PRN Reason: PAIN Stop: 03/19/17 19:46 Zolpidem Tartrate (Ambien) 5 mg PO HS PRN PRN Reason: Insomnia Stop: 03/19/17 19:36 General: No acute distress HEENT: Atraumatic Cardiovascular: Regular rate, Normal S1, Normal S2 Assessment/Plan - Problem List Patient Problems: All Active Problems DEPRESSION WITH SUICIDAL IDEATION (Acute) - Plan Plan: monitor vital/diet labs f/up consultants Nutritional Asmnt/Malnutr-PDOC - Dietary Evaluation Malnutrition Findings (Please click <Entered> for more info): Nutritional Asmnt/Malnutrition Start: 01/22/17 18: 16 Text: Status: Complete Freq: Document 01/22/17 18:16 [facility] (Rec: 01/22/17 18:22 [facility] [id number]) Nutritional Asmnt/Malnutrition Patient General Information Nutritional Screening Moderate Risk Screening Diagnosis Rule otu dementia, rule out major depression Pertinent Medical Hx/Surgical Hx Dementia, ESRD, alcohol abuse Subjective Information Pt is a 76-year-old female from [facility] admitted with chief complaint of depression and being suicidal. Pt was awake and alert during time of visit. Pt is a good historian. Pt reports having a good appetite prior to admit. Pt states she appreciates the ground textured diet provided and she is able tolerate meals. PT wears dentures. Pt reports hx of having 6 inches of intestines surgically removed and so she cannot eat large portions. Pt reports UBW 125# of years. Pt appears well nourished with no signs of muscle or fat depletion. Current Diet Order/ Nutrition Support Mechanical soft ground, HAMZAH, low fat, low cholesterol Patient / S.O Can Pertinent Medications Folate, Klor-Con, Vitamin B1 Pertinent Labs Reviewed Nutritional Hx/Data Height 1.63 m Height (Calculated Centimeters) 162.6 Current Weight (lbs) 54.567 kg Weight (Calculated Kilograms) 54.6 Weight (Calculated Grams) 98102.2 Usual body Weight (lbs) 125 % Usual Body Weight 96 [place] Body Weight 120 % [place] Body Weight 100 Recent Weight Change No Weight Status Approriate GI Symptoms GI Symptoms None Difficult in: Chewing Food Allergies No Cultural/Ethnic/Yarsanism Belief No cultural or presybeterian beliefs provided. Pt receives fresh fruits and breakfast and lunch. Usual diet at home HAMZAH, low fat, low cholesterol Skin Integrity/Comment: Stone 20. Skin intact. Current %PO Fair (50-74%) Estimated Nutritional Goals BEE in Kcals: Using Current wt Calories/Kcals/Kg Based on current wt 54.7 kg Kcals Calculated 7603-5990 kcals/day (25-30 kcals/kg) Protein: Using Current wt Protein g/kg: Based on current wt 54.7 kg Protein Calculated 55 gm/day (1 gm/kg) Fluid: ml 6910-3323 ml/day (30-35 ml/kg) Nutritional Problem 1. Problem Problem No nutritional problems at this time. Malnutrition Alert Protein-Calorie Malnutrition N/A Is there a minimum of two criteria No selected? Query Text:Check all the applicable criteria. A minimum of two criteria are recommended for diagnosis of either severe or non-severe malnutrition. Malnutrition Related to Morbid Obesity Malnutrition related to morbid obesity No Intervention/Recommendation Comments 1. Continue with current diet as tolerated. 2. If PO intake decreases due to early satiety, recommend six small meals per day for better tolerance. Expected Outcomes/Goals Expected Outcomes/Goals Have pt meet at least 75% of estimated nutritional needs. Physician Parameters for PEM Normal Weight % 90% - 110% (Normal) Body Mass Index (BMI) 19 - 24 (Normal) Serum Albumin (g/dl) 3.5 - 5.0 (Normal)
--- NOTE | 2017-01-29 02:39 | Progress Notes ---
DATE: 01/28/2017 SUBJECTIVE: The patient was seen, chart reviewed, and discussed with staff. The patient remains depressed down, still confused, poor memory, still noted to be labile at times, isolative, and withdrawn. I did speak with son, updated him. The patient with continued poor memory as well, mainly keeps to herself. ASSESSMENT: The patient remains symptomatic, depressed, withdrawn, confused. The patient with poor memory as well, disorientation. We will continue to monitor, apparently the son left some paper work for me to fill out, not really able to find it in the chart, but will require to the social media content manager, I believe it is a . JOB# [id number]
[2017-01-29] MEDS: Potassium Chloride 10 mEq ER Tab PO SCH (09:10)
--- NOTE | 2017-01-29 13:15 | General Progress Note ---
Subjective - Review of Systems Events since last encounter: patient continues to be withdrawn depressed mood Objective - Results Result Diagrams: 01/18/17 14:58 01/18/17 14:58 Recent Labs: Laboratory Last Values WBC 10.0 Th/cmm (4.8-10.8) 01/18/17 14:58 RBC 3.96 Mil/cmm (3.80-5.20) 01/18/17 14:58 Hgb 12.7 gm/dL (11.7-16.1) 01/18/17 14:58 Hct 38.1 % (35.0-45.0) 01/18/17 14:58 MCV 96.3 fl (81-100) 01/18/17 14:58 MCH 32.0 pg (27.0-31.0) H 01/18/17 14:58 MCHC Differential 33.3 pg (28.0-36.0) 01/18/17 14:58 RDW 13.8 % (11.5-20.0) 01/18/17 14:58 Plt Count 228 Th/cmm (150-400) 01/18/17 14:58 MPV 9.6 fl 01/18/17 14:58 Neutrophils % 57.1 % (40.0-80.0) 01/18/17 14:58 Lymphocytes % 30.5 % (20.0-50.0) 01/18/17 14:58 Monocytes % 9.0 % (2.0-10.0) 01/18/17 14:58 Eosinophils % 2.6 % (0.0-5.0) 01/18/17 14:58 Basophils % 0.8 % (0.0-2.0) 01/18/17 14:58 PT 10.3 SECONDS (9.5-11.5) 01/18/17 14:58 INR 0.99 (0.5-1.4) 01/18/17 14:58 PTT (Actin FS) 23.2 SECONDS (26.0-38.0) L 01/18/17 14:58 Sodium 137 mEq/L (136-145) 01/18/17 14:58 Potassium 3.7 mEq/L (3.5-5.1) 01/18/17 14:58 Chloride 107 mEq/L (98-107) 01/18/17 14:58 Carbon Dioxide 25.4 mEq/L (21.0-31.0) 01/18/17 14:58 Anion Gap 8.3 (7.0-16.0) 01/18/17 14:58 BUN 7 mg/dL (7-25) 01/18/17 14:58 Creatinine 0.5 mg/dL (0.6-1.2) L 01/18/17 14:58 Est GFR ( Amer) TNP 01/18/17 14:58 Est GFR (Non-Af Amer) TNP 01/18/17 14:58 BUN/Creatinine Ratio 14.0 01/18/17 14:58 Glucose 114 mg/dL (70-105) H 01/18/17 14:58 Calcium 9.9 mg/dL (8.6-10.3) 01/18/17 14:58 Total Bilirubin 0.4 mg/dL (0.3-1.0) 01/18/17 14:58 AST 17 U/L (13-39) 01/18/17 14:58 ALT 9 U/L (7-52) 01/18/17 14:58 Alkaline Phosphatase 67 U/L (34-104) 01/18/17 14:58 Troponin I 0.01 ng/mL (0.01-0.05) 01/18/17 14:58 Total Protein 6.8 gm/dL (6.0-8.3) 01/18/17 14:58 Albumin 3.8 gm/dL (3.7-5.3) 01/18/17 14:58 Globulin 3.0 gm/dL 01/18/17 14:58 Albumin/Globulin Ratio 1.3 (1.0-1.8) 01/18/17 14:58 Triglycerides 129 mg/dL (<150) 01/18/17 14:58 Cholesterol 185 mg/dL (<200) 01/18/17 14:58 LDL Cholesterol Direct 99 mg/dL (75-193) 01/18/17 14:58 HDL Cholesterol 62 mg/dL (23-92) 01/18/17 14:58 TSH 1.78 uIU/ml (0.34-5.60) 01/18/17 14:58 Urine Source CLEAN C 01/18/17 14:30 Urine Color YELLOW 01/18/17 14:30 Urine Clarity SLIGHT CLOUDY (CLEAR) 01/18/17 14:30 Urine pH 6.5 (4.6 - 8.0) 01/18/17 14:30 Ur Specific [place] 1.015 (1.005-1.030) 01/18/17 14:30 Urine Protein NEGATIVE mg/dL (NEGATIVE) 01/18/17 14:30 Urine Glucose (UA) NEGATIVE mg/dL (NEGATIVE) 01/18/17 14:30 Urine Ketones NEGATIVE mg/dL (NEGATIVE) 01/18/17 14:30 Urine Blood TRACE (NEGATIVE) 01/18/17 14:30 Urine Nitrate NEGATIVE (NEGATIVE) 01/18/17 14:30 Urine Bilirubin NEGATIVE (NEGATIVE) 01/18/17 14:30 Urine Urobilinogen 0.2 E.U./dL (0.2 - 1.0) 01/18/17 14:30 Ur Leukocyte Esterase NEGATIVE (NEGATIVE) 01/18/17 14:30 Urine RBC 0-2 /hpf (0-5) 01/18/17 14:30 Urine WBC 0-2 /hpf (0-5) 01/18/17 14:30 Ur Epithelial Cells MODERATE /lpf (FEW) 01/18/17 14:30 Urine Bacteria MANY /hpf (NONE SEEN) 01/18/17 14:30 Rheumatoid Factor <10.0 IU/mL (0.0-13.9) 01/28/17 14:00 RPR NONREACTIVE (NONREACTIVE) 01/18/17 14:58 - Physical Exam Vitals and I&O: Vital Signs Temp 98.2 F 01/28/17 18:22 Pulse 84 01/28/17 18:22 Resp 20 01/28/17 18:22 BP 138/74 01/28/17 18:22 Pulse Ox 96 01/28/17 18:22 Intake & Output 01/28/17 01/29/17 01/29/17 18:59 06:59 18:59 Intake Total 800 Balance 800 Intake: Oral 800 Other: # Voids 2 # Bowel Movements 1 Active Medications: Current Medications Acetaminophen (Tylenol) 650 mg PO Q4HR PRN PRN Reason: Mild Pain / Temp above 100 Stop: 03/19/17 19:36 Al Hydrox/Mg Hydrox/Simethicone (Maalox) 30 ml PO Q4HR PRN PRN Reason: GI DISTRESS Stop: 03/19/17 19:36 Docusate Sodium (Colace) 100 mg PO Q24HR PRN PRN Reason: Constipation Stop: 03/19/17 19:59 Donepezil HCl (Aricept) 5 mg PO DAILY JACQUES Stop: 03/27/17 08:59 Last Admin: 01/29/17 09:10 Dose: 5 mg Folic Acid (Folate) 1 mg PO DAILY JACQUES Stop: 03/20/17 08:59 Last Admin: 01/29/17 09:10 Dose: 1 mg Lorazepam (Ativan) 1 mg PO Q6H PRN; Protocol PRN Reason: Anxiety Stop: 03/25/17 14:50 Last Admin: 01/26/17 14:53 Dose: 1 mg Magnesium Hydroxide (Milk Of Magnesia) 30 ml PO HS PRN PRN Reason: Constipation Ondansetron HCl (Zofran Odt) 4 mg PO Q6H PRN PRN Reason: Nausea / Vomiting Stop: 03/19/17 19:51 Potassium Chloride (Klor-Con) 10 meq PO DAILY JACQUES Stop: 03/20/17 08:59 Last Admin: 01/29/17 09:10 Dose: 10 meq Sertraline HCl (Zoloft) 75 mg PO DAILY JACQUES PRN Reason: Protocol Stop: 03/24/17 10:34 Last Admin: 01/29/17 09:10 Dose: 75 mg Thiamine HCl (Vitamin B1) 100 mg PO DAILY JACQUES Stop: 03/20/17 08:59 Last Admin: 01/29/17 09:10 Dose: 100 mg Tramadol HCl (Ultram) 50 mg PO Q8HR PRN PRN Reason: PAIN Stop: 03/19/17 19:46 Zolpidem Tartrate (Ambien) 5 mg PO HS PRN PRN Reason: Insomnia Stop: 03/19/17 19:36 General: No acute distress HEENT: Atraumatic Cardiovascular: Regular rate, Normal S1, Normal S2 Assessment/Plan - Problem List Patient Problems: All Active Problems DEPRESSION WITH SUICIDAL IDEATION (Acute) - Plan Plan: monitor vital/diet labs f/up consultants Nutritional Asmnt/Malnutr-PDOC - Dietary Evaluation Malnutrition Findings (Please click <Entered> for more info): Nutritional Asmnt/Malnutrition Start: 01/22/17 18: 16 Text: Status: Complete Freq: Document 01/22/17 18:16 [facility] (Rec: 01/22/17 18:22 [facility] [id number]) Nutritional Asmnt/Malnutrition Patient General Information Nutritional Screening Moderate Risk Screening Diagnosis Rule otu dementia, rule out major depression Pertinent Medical Hx/Surgical Hx Dementia, ESRD, alcohol abuse Subjective Information Pt is a 76-year-old female from [facility] admitted with chief complaint of depression and being suicidal. Pt was awake and alert during time of visit. Pt is a good historian. Pt reports having a good appetite prior to admit. Pt states she appreciates the ground textured diet provided and she is able tolerate meals. PT wears dentures. Pt reports hx of having 6 inches of intestines surgically removed and so she cannot eat large portions. Pt reports UBW 125# of years. Pt appears well nourished with no signs of muscle or fat depletion. Current Diet Order/ Nutrition Support Mechanical soft ground, HAMZAH, low fat, low cholesterol Patient / S.O Can Pertinent Medications Folate, Klor-Con, Vitamin B1 Pertinent Labs Reviewed Nutritional Hx/Data Height 1.63 m Height (Calculated Centimeters) 162.6 Current Weight (lbs) 54.567 kg Weight (Calculated Kilograms) 54.6 Weight (Calculated Grams) 98104.2 Usual body Weight (lbs) 125 % Usual Body Weight 96 [place] Body Weight 120 % [place] Body Weight 100 Recent Weight Change No Weight Status Approriate GI Symptoms GI Symptoms None Difficult in: Chewing Food Allergies No Cultural/Ethnic/Islam Belief No cultural or orthodoxy beliefs provided. Pt receives fresh fruits and breakfast and lunch. Usual diet at home HAMZAH, low fat, low cholesterol Skin Integrity/Comment: Stone 20. Skin intact. Current %PO Fair (50-74%) Estimated Nutritional Goals BEE in Kcals: Using Current wt Calories/Kcals/Kg Based on current wt 54.7 kg Kcals Calculated 7726-4331 kcals/day (25-30 kcals/kg) Protein: Using Current wt Protein g/kg: Based on current wt 54.7 kg Protein Calculated 55 gm/day (1 gm/kg) Fluid: ml 6420-7335 ml/day (30-35 ml/kg) Nutritional Problem 1. Problem Problem No nutritional problems at this time. Malnutrition Alert Protein-Calorie Malnutrition N/A Is there a minimum of two criteria No selected? Query Text:Check all the applicable criteria. A minimum of two criteria are recommended for diagnosis of either severe or non-severe malnutrition. Malnutrition Related to Morbid Obesity Malnutrition related to morbid obesity No Intervention/Recommendation Comments 1. Continue with current diet as tolerated. 2. If PO intake decreases due to early satiety, recommend six small meals per day for better tolerance. Expected Outcomes/Goals Expected Outcomes/Goals Have pt meet at least 75% of estimated nutritional needs. Physician Parameters for PEM Normal Weight % 90% - 110% (Normal) Body Mass Index (BMI) 19 - 24 (Normal) Serum Albumin (g/dl) 3.5 - 5.0 (Normal)
[2017-01-30] MEDS: Potassium Chloride 10 mEq ER Tab PO SCH (08:53)
--- NOTE | 2017-01-30 10:55 | Progress Notes ---
DATE: 01/29/[address] Camacho. Case was discussed with staff of the patient, reviewed records. She is a well known case to me. I have seen her last week Covering for Dr. Camacho. The patient has been confused with poor memory, labile at times, isolating, withdrawn, doctor spoke to her son. The patient continues to have poor memory, stay to herself. Today, she is still depressed. She is confused. She did not take her medication. When I asked her why she is not taking her medication, was unable to give me any specific answer. She has been on Aricept 5 mg at bedtime and Zoloft 75 mg daily. I will be unable to give her any adjustment in her medications, so she started taking medication on a regular basis. We will continue to work with the patient in group therapy, milieu therapy, and adjust medications as needed. [facility]# [id number]
--- NOTE | 2017-01-31 02:34 | Progress Notes ---
DATE: 01/30/2017 Case was discussed with staff of the patient, reviewed records. The patient has been isolating herself yesterday. She is taking medication from today. She is still confused, unable to make safe plan for self-care, unpredictable, impulsive, needing redirection. She is compliant with the medication with no side effects, no sedation, no nausea, and no extrapyramidal symptoms. Her Zoloft was increased to 75 mg a day from 01/23/2017. She is on Aricept 5 mg at bedtime that was started 3 days ago. We will continue to work with the patient in group therapy, milieu therapy, adjust medication as needed. JOB# [id number]
[2017-01-31] MEDS: Potassium Chloride 10 mEq ER Tab PO SCH (09:46)
--- NOTE | 2017-01-31 11:20 | General Progress Note ---
Subjective - Review of Systems Events since last encounter: patient with no distress continues to be depressed Objective - Results Result Diagrams: 01/18/17 14:58 01/18/17 14:58 Recent Labs: Laboratory Last Values WBC 10.0 Th/cmm (4.8-10.8) 01/18/17 14:58 RBC 3.96 Mil/cmm (3.80-5.20) 01/18/17 14:58 Hgb 12.7 gm/dL (11.7-16.1) 01/18/17 14:58 Hct 38.1 % (35.0-45.0) 01/18/17 14:58 MCV 96.3 fl (81-100) 01/18/17 14:58 MCH 32.0 pg (27.0-31.0) H 01/18/17 14:58 MCHC Differential 33.3 pg (28.0-36.0) 01/18/17 14:58 RDW 13.8 % (11.5-20.0) 01/18/17 14:58 Plt Count 228 Th/cmm (150-400) 01/18/17 14:58 MPV 9.6 fl 01/18/17 14:58 Neutrophils % 57.1 % (40.0-80.0) 01/18/17 14:58 Lymphocytes % 30.5 % (20.0-50.0) 01/18/17 14:58 Monocytes % 9.0 % (2.0-10.0) 01/18/17 14:58 Eosinophils % 2.6 % (0.0-5.0) 01/18/17 14:58 Basophils % 0.8 % (0.0-2.0) 01/18/17 14:58 PT 10.3 SECONDS (9.5-11.5) 01/18/17 14:58 INR 0.99 (0.5-1.4) 01/18/17 14:58 PTT (Actin FS) 23.2 SECONDS (26.0-38.0) L 01/18/17 14:58 Sodium 137 mEq/L (136-145) 01/18/17 14:58 Potassium 3.7 mEq/L (3.5-5.1) 01/18/17 14:58 Chloride 107 mEq/L (98-107) 01/18/17 14:58 Carbon Dioxide 25.4 mEq/L (21.0-31.0) 01/18/17 14:58 Anion Gap 8.3 (7.0-16.0) 01/18/17 14:58 BUN 7 mg/dL (7-25) 01/18/17 14:58 Creatinine 0.5 mg/dL (0.6-1.2) L 01/18/17 14:58 Est GFR ( Amer) TNP 01/18/17 14:58 Est GFR (Non-Af Amer) TNP 01/18/17 14:58 BUN/Creatinine Ratio 14.0 01/18/17 14:58 Glucose 114 mg/dL (70-105) H 01/18/17 14:58 Calcium 9.9 mg/dL (8.6-10.3) 01/18/17 14:58 Total Bilirubin 0.4 mg/dL (0.3-1.0) 01/18/17 14:58 AST 17 U/L (13-39) 01/18/17 14:58 ALT 9 U/L (7-52) 01/18/17 14:58 Alkaline Phosphatase 67 U/L (34-104) 01/18/17 14:58 Troponin I 0.01 ng/mL (0.01-0.05) 01/18/17 14:58 Total Protein 6.8 gm/dL (6.0-8.3) 01/18/17 14:58 Albumin 3.8 gm/dL (3.7-5.3) 01/18/17 14:58 Globulin 3.0 gm/dL 01/18/17 14:58 Albumin/Globulin Ratio 1.3 (1.0-1.8) 01/18/17 14:58 Triglycerides 129 mg/dL (<150) 01/18/17 14:58 Cholesterol 185 mg/dL (<200) 01/18/17 14:58 LDL Cholesterol Direct 99 mg/dL (75-193) 01/18/17 14:58 HDL Cholesterol 62 mg/dL (23-92) 01/18/17 14:58 TSH 1.78 uIU/ml (0.34-5.60) 01/18/17 14:58 Urine Source CLEAN C 01/18/17 14:30 Urine Color YELLOW 01/18/17 14:30 Urine Clarity SLIGHT CLOUDY (CLEAR) 01/18/17 14:30 Urine pH 6.5 (4.6 - 8.0) 01/18/17 14:30 Ur Specific [place] 1.015 (1.005-1.030) 01/18/17 14:30 Urine Protein NEGATIVE mg/dL (NEGATIVE) 01/18/17 14:30 Urine Glucose (UA) NEGATIVE mg/dL (NEGATIVE) 01/18/17 14:30 Urine Ketones NEGATIVE mg/dL (NEGATIVE) 01/18/17 14:30 Urine Blood TRACE (NEGATIVE) 01/18/17 14:30 Urine Nitrate NEGATIVE (NEGATIVE) 01/18/17 14:30 Urine Bilirubin NEGATIVE (NEGATIVE) 01/18/17 14:30 Urine Urobilinogen 0.2 E.U./dL (0.2 - 1.0) 01/18/17 14:30 Ur Leukocyte Esterase NEGATIVE (NEGATIVE) 01/18/17 14:30 Urine RBC 0-2 /hpf (0-5) 01/18/17 14:30 Urine WBC 0-2 /hpf (0-5) 01/18/17 14:30 Ur Epithelial Cells MODERATE /lpf (FEW) 01/18/17 14:30 Urine Bacteria MANY /hpf (NONE SEEN) 01/18/17 14:30 Rheumatoid Factor <10.0 IU/mL (0.0-13.9) 01/28/17 14:00 RPR NONREACTIVE (NONREACTIVE) 01/18/17 14:58 - Physical Exam Vitals and I&O: Vital Signs Temp 97.3 F 01/31/17 06:33 Pulse 66 01/31/17 06:33 Resp 20 01/31/17 06:33 BP 108/70 01/31/17 06:33 Pulse Ox 97 01/31/17 06:33 Intake & Output 01/30/17 01/31/17 01/31/17 18:59 06:59 18:59 Intake Total 1919 Balance 1919 Intake: Oral 1919 Other: # Voids 3 # Bowel Movements 0 Active Medications: Current Medications Acetaminophen (Tylenol) 650 mg PO Q4HR PRN PRN Reason: Mild Pain / Temp above 100 Stop: 03/19/17 19:36 Al Hydrox/Mg Hydrox/Simethicone (Maalox) 30 ml PO Q4HR PRN PRN Reason: GI DISTRESS Stop: 03/19/17 19:36 Docusate Sodium (Colace) 100 mg PO Q24HR PRN PRN Reason: Constipation Stop: 03/19/17 19:59 Donepezil HCl (Aricept) 5 mg PO DAILY JACQUES Stop: 03/27/17 08:59 Last Admin: 01/31/17 09:45 Dose: 5 mg Folic Acid (Folate) 1 mg PO DAILY JACQUES Stop: 03/20/17 08:59 Last Admin: 01/31/17 09:45 Dose: 1 mg Lorazepam (Ativan) 1 mg PO Q6H PRN; Protocol PRN Reason: Anxiety Stop: 03/25/17 14:50 Last Admin: 01/26/17 14:53 Dose: 1 mg Magnesium Hydroxide (Milk Of Magnesia) 30 ml PO HS PRN PRN Reason: Constipation Ondansetron HCl (Zofran Odt) 4 mg PO Q6H PRN PRN Reason: Nausea / Vomiting Stop: 03/19/17 19:51 Potassium Chloride (Klor-Con) 10 meq PO DAILY JACQUES Stop: 03/20/17 08:59 Last Admin: 01/31/17 09:46 Dose: 10 meq Sertraline HCl (Zoloft) 75 mg PO DAILY JACQUES PRN Reason: Protocol Stop: 03/24/17 10:34 Last Admin: 01/31/17 09:45 Dose: 75 mg Thiamine HCl (Vitamin B1) 100 mg PO DAILY JACQUES Stop: 03/20/17 08:59 Last Admin: 01/31/17 09:45 Dose: 100 mg Tramadol HCl (Ultram) 50 mg PO Q8HR PRN PRN Reason: PAIN Stop: 03/19/17 19:46 Last Admin: 01/30/17 06:54 Dose: 50 mg Zolpidem Tartrate (Ambien) 5 mg PO HS PRN PRN Reason: Insomnia Stop: 03/19/17 19:36 General: No acute distress HEENT: Atraumatic Cardiovascular: Regular rate, Normal S1, Normal S2 Assessment/Plan - Problem List Patient Problems: All Active Problems DEPRESSION WITH SUICIDAL IDEATION (Acute) - Plan Plan: monitor vital/diet labs f/up consultants Nutritional Asmnt/Malnutr-PDOC - Dietary Evaluation Malnutrition Findings (Please click <Entered> for more info): Nutritional Asmnt/Malnutrition Start: 01/22/17 18: 16 Text: Status: Complete Freq: Document 01/22/17 18:16 [facility] (Rec: 01/22/17 18:22 [facility] [id number]) Nutritional Asmnt/Malnutrition Patient General Information Nutritional Screening Moderate Risk Screening Diagnosis Rule otu dementia, rule out major depression Pertinent Medical Hx/Surgical Hx Dementia, ESRD, alcohol abuse Subjective Information Pt is a 76-year-old female from [facility] admitted with chief complaint of depression and being suicidal. Pt was awake and alert during time of visit. Pt is a good historian. Pt reports having a good appetite prior to admit. Pt states she appreciates the ground textured diet provided and she is able tolerate meals. PT wears dentures. Pt reports hx of having 6 inches of intestines surgically removed and so she cannot eat large portions. Pt reports UBW 125# of years. Pt appears well nourished with no signs of muscle or fat depletion. Current Diet Order/ Nutrition Support Mechanical soft ground, HAMZAH, low fat, low cholesterol Patient / S.O Can Pertinent Medications Folate, Klor-Con, Vitamin B1 Pertinent Labs Reviewed Nutritional Hx/Data Height 1.63 m Height (Calculated Centimeters) 162.6 Current Weight (lbs) 54.567 kg Weight (Calculated Kilograms) 54.6 Weight (Calculated Grams) 78671.2 Usual body Weight (lbs) 125 % Usual Body Weight 96 [place] Body Weight 120 % [place] Body Weight 100 Recent Weight Change No Weight Status Approriate GI Symptoms GI Symptoms None Difficult in: Chewing Food Allergies No Cultural/Ethnic/Confucianist Belief No cultural or adventism beliefs provided. Pt receives fresh fruits and breakfast and lunch. Usual diet at home HAMZAH, low fat, low cholesterol Skin Integrity/Comment: [place]. Skin intact. Current %PO Fair (50-74%) Estimated Nutritional Goals BEE in Kcals: Using Current wt Calories/Kcals/Kg Based on current wt 54.7 kg Kcals Calculated 8172-3392 kcals/day (25-30 kcals/kg) Protein: Using Current wt Protein g/kg: Based on current wt 54.7 kg Protein Calculated 55 gm/day (1 gm/kg) Fluid: ml 3802-0306 ml/day (30-35 ml/kg) Nutritional Problem 1. Problem Problem No nutritional problems at this time. Malnutrition Alert Protein-Calorie Malnutrition N/A Is there a minimum of two criteria No selected? Query Text:Check all the applicable criteria. A minimum of two criteria are recommended for diagnosis of either severe or non-severe malnutrition. Malnutrition Related to Morbid Obesity Malnutrition related to morbid obesity No Intervention/Recommendation Comments 1. Continue with current diet as tolerated. 2. If PO intake decreases due to early satiety, recommend six small meals per day for better tolerance. Expected Outcomes/Goals Expected Outcomes/Goals Have pt meet at least 75% of estimated nutritional needs. Physician Parameters for PEM Normal Weight % 90% - 110% (Normal) Body Mass Index (BMI) 19 - 24 (Normal) Serum Albumin (g/dl) 3.5 - 5.0 (Normal)
--- NOTE | 2017-02-01 04:05 | Progress Notes ---
DATE: 01/31/2017 Case was discussed with staff of the patient, reviewed records. The patient continues to have poor insight, somewhat confused, sleeping better, eating better, compliant with the medication with no side effects, no sedation, no nausea, no extrapyramidal symptoms. We will continue to work with the patient in group therapy, milieu therapy, adjust medication as needed. JOB# [id number]
[2017-02-01] MEDS: Potassium Chloride 10 mEq ER Tab PO SCH (08:25)
--- NOTE | 2017-02-01 12:56 | General Progress Note ---
Subjective - Review of Systems Events since last encounter: patient confused compliant with meds no acute distress Objective - Results Result Diagrams: 01/18/17 14:58 01/18/17 14:58 Recent Labs: Laboratory Last Values WBC 10.0 Th/cmm (4.8-10.8) 01/18/17 14:58 RBC 3.96 Mil/cmm (3.80-5.20) 01/18/17 14:58 Hgb 12.7 gm/dL (11.7-16.1) 01/18/17 14:58 Hct 38.1 % (35.0-45.0) 01/18/17 14:58 MCV 96.3 fl (81-100) 01/18/17 14:58 MCH 32.0 pg (27.0-31.0) H 01/18/17 14:58 MCHC Differential 33.3 pg (28.0-36.0) 01/18/17 14:58 RDW 13.8 % (11.5-20.0) 01/18/17 14:58 Plt Count 228 Th/cmm (150-400) 01/18/17 14:58 MPV 9.6 fl 01/18/17 14:58 Neutrophils % 57.1 % (40.0-80.0) 01/18/17 14:58 Lymphocytes % 30.5 % (20.0-50.0) 01/18/17 14:58 Monocytes % 9.0 % (2.0-10.0) 01/18/17 14:58 Eosinophils % 2.6 % (0.0-5.0) 01/18/17 14:58 Basophils % 0.8 % (0.0-2.0) 01/18/17 14:58 PT 10.3 SECONDS (9.5-11.5) 01/18/17 14:58 INR 0.99 (0.5-1.4) 01/18/17 14:58 PTT (Actin FS) 23.2 SECONDS (26.0-38.0) L 01/18/17 14:58 Sodium 137 mEq/L (136-145) 01/18/17 14:58 Potassium 3.7 mEq/L (3.5-5.1) 01/18/17 14:58 Chloride 107 mEq/L (98-107) 01/18/17 14:58 Carbon Dioxide 25.4 mEq/L (21.0-31.0) 01/18/17 14:58 Anion Gap 8.3 (7.0-16.0) 01/18/17 14:58 BUN 7 mg/dL (7-25) 01/18/17 14:58 Creatinine 0.5 mg/dL (0.6-1.2) L 01/18/17 14:58 Est GFR ( Amer) TNP 01/18/17 14:58 Est GFR (Non-Af Amer) TNP 01/18/17 14:58 BUN/Creatinine Ratio 14.0 01/18/17 14:58 Glucose 114 mg/dL (70-105) H 01/18/17 14:58 Calcium 9.9 mg/dL (8.6-10.3) 01/18/17 14:58 Total Bilirubin 0.4 mg/dL (0.3-1.0) 01/18/17 14:58 AST 17 U/L (13-39) 01/18/17 14:58 ALT 9 U/L (7-52) 01/18/17 14:58 Alkaline Phosphatase 67 U/L (34-104) 01/18/17 14:58 Troponin I 0.01 ng/mL (0.01-0.05) 01/18/17 14:58 Total Protein 6.8 gm/dL (6.0-8.3) 01/18/17 14:58 Albumin 3.8 gm/dL (3.7-5.3) 01/18/17 14:58 Globulin 3.0 gm/dL 01/18/17 14:58 Albumin/Globulin Ratio 1.3 (1.0-1.8) 01/18/17 14:58 Triglycerides 129 mg/dL (<150) 01/18/17 14:58 Cholesterol 185 mg/dL (<200) 01/18/17 14:58 LDL Cholesterol Direct 99 mg/dL (75-193) 01/18/17 14:58 HDL Cholesterol 62 mg/dL (23-92) 01/18/17 14:58 TSH 1.78 uIU/ml (0.34-5.60) 01/18/17 14:58 Urine Source CLEAN C 01/18/17 14:30 Urine Color YELLOW 01/18/17 14:30 Urine Clarity SLIGHT CLOUDY (CLEAR) 01/18/17 14:30 Urine pH 6.5 (4.6 - 8.0) 01/18/17 14:30 Ur Specific [place] 1.015 (1.005-1.030) 01/18/17 14:30 Urine Protein NEGATIVE mg/dL (NEGATIVE) 01/18/17 14:30 Urine Glucose (UA) NEGATIVE mg/dL (NEGATIVE) 01/18/17 14:30 Urine Ketones NEGATIVE mg/dL (NEGATIVE) 01/18/17 14:30 Urine Blood TRACE (NEGATIVE) 01/18/17 14:30 Urine Nitrate NEGATIVE (NEGATIVE) 01/18/17 14:30 Urine Bilirubin NEGATIVE (NEGATIVE) 01/18/17 14:30 Urine Urobilinogen 0.2 E.U./dL (0.2 - 1.0) 01/18/17 14:30 Ur Leukocyte Esterase NEGATIVE (NEGATIVE) 01/18/17 14:30 Urine RBC 0-2 /hpf (0-5) 01/18/17 14:30 Urine WBC 0-2 /hpf (0-5) 01/18/17 14:30 Ur Epithelial Cells MODERATE /lpf (FEW) 01/18/17 14:30 Urine Bacteria MANY /hpf (NONE SEEN) 01/18/17 14:30 Rheumatoid Factor <10.0 IU/mL (0.0-13.9) 01/28/17 14:00 RPR NONREACTIVE (NONREACTIVE) 01/18/17 14:58 - Physical Exam Vitals and I&O: Vital Signs Temp 98.1 F 02/01/17 06:36 Pulse 72 02/01/17 06:36 Resp 18 02/01/17 06:36 BP 144/81 02/01/17 06:36 Pulse Ox 98 02/01/17 06:36 Intake & Output 01/31/17 02/01/17 02/01/17 18:59 06:59 18:59 Intake Total 120 Balance 120 Weight (lbs) 54.567 kg Intake: Oral 120 Other: # Voids 3 # Bowel Movements 0 Active Medications: Current Medications Acetaminophen (Tylenol) 650 mg PO Q4HR PRN PRN Reason: Mild Pain / Temp above 100 Stop: 03/19/17 19:36 Al Hydrox/Mg Hydrox/Simethicone (Maalox) 30 ml PO Q4HR PRN PRN Reason: GI DISTRESS Stop: 03/19/17 19:36 Docusate Sodium (Colace) 100 mg PO Q24HR PRN PRN Reason: Constipation Stop: 03/19/17 19:59 Donepezil HCl (Aricept) 5 mg PO DAILY JACQUES Stop: 03/27/17 08:59 Last Admin: 02/01/17 08:26 Dose: 5 mg Folic Acid (Folate) 1 mg PO DAILY JACQUES Stop: 03/20/17 08:59 Last Admin: 02/01/17 08:26 Dose: 1 mg Lorazepam (Ativan) 1 mg PO Q6H PRN; Protocol PRN Reason: Anxiety Stop: 03/25/17 14:50 Last Admin: 01/26/17 14:53 Dose: 1 mg Magnesium Hydroxide (Milk Of Magnesia) 30 ml PO HS PRN PRN Reason: Constipation Ondansetron HCl (Zofran Odt) 4 mg PO Q6H PRN PRN Reason: Nausea / Vomiting Stop: 03/19/17 19:51 Potassium Chloride (Klor-Con) 10 meq PO DAILY JACQUES Stop: 03/20/17 08:59 Last Admin: 02/01/17 08:25 Dose: 10 meq Sertraline HCl (Zoloft) 75 mg PO DAILY JACQUES PRN Reason: Protocol Stop: 03/24/17 10:34 Last Admin: 02/01/17 08:25 Dose: 75 mg Thiamine HCl (Vitamin B1) 100 mg PO DAILY JACQUES Stop: 03/20/17 08:59 Last Admin: 02/01/17 08:26 Dose: 100 mg Tramadol HCl (Ultram) 50 mg PO Q8HR PRN PRN Reason: PAIN Stop: 03/19/17 19:46 Last Admin: 01/30/17 06:54 Dose: 50 mg Zolpidem Tartrate (Ambien) 5 mg PO HS PRN PRN Reason: Insomnia Stop: 03/19/17 19:36 General: No acute distress HEENT: Atraumatic Cardiovascular: Regular rate, Normal S1, Normal S2 Assessment/Plan - Problem List Patient Problems: All Active Problems DEPRESSION WITH SUICIDAL IDEATION (Acute) - Plan Plan: monitor vital/diet labs f/up consultants Nutritional Asmnt/Malnutr-PDOC - Dietary Evaluation Malnutrition Findings (Please click <Entered> for more info): Nutritional Asmnt/Malnutrition Start: 01/22/17 18: 16 Text: Status: Complete Freq: Document 01/22/17 18:16 [facility] (Rec: 01/22/17 18:22 [facility] [id number]) Nutritional Asmnt/Malnutrition Patient General Information Nutritional Screening Moderate Risk Screening Diagnosis Rule otu dementia, rule out major depression Pertinent Medical Hx/Surgical Hx Dementia, ESRD, alcohol abuse Subjective Information Pt is a 76-year-old female from [facility] admitted with chief complaint of depression and being suicidal. Pt was awake and alert during time of visit. Pt is a good historian. Pt reports having a good appetite prior to admit. Pt states she appreciates the ground textured diet provided and she is able tolerate meals. PT wears dentures. Pt reports hx of having 6 inches of intestines surgically removed and so she cannot eat large portions. Pt reports UBW 125# of years. Pt appears well nourished with no signs of muscle or fat depletion. Current Diet Order/ Nutrition Support Mechanical soft ground, HAMZAH, low fat, low cholesterol Patient / S.O Can Pertinent Medications Folate, Klor-Con, Vitamin B1 Pertinent Labs Reviewed Nutritional Hx/Data Height 1.63 m Height (Calculated Centimeters) 162.6 Current Weight (lbs) 54.567 kg Weight (Calculated Kilograms) 54.6 Weight (Calculated Grams) 83920.2 Usual body Weight (lbs) 125 % Usual Body Weight 96 [place] Body Weight 120 % [place] Body Weight 100 Recent Weight Change No Weight Status Approriate GI Symptoms GI Symptoms None Difficult in: Chewing Food Allergies No Cultural/Ethnic/Restorationism Belief No cultural or lutheran beliefs provided. Pt receives fresh fruits and breakfast and lunch. Usual diet at home HAMZAH, low fat, low cholesterol Skin Integrity/Comment: [place] 20. Skin intact. Current %PO Fair (50-74%) Estimated Nutritional Goals BEE in Kcals: Using Current wt Calories/Kcals/Kg Based on current wt 54.7 kg Kcals Calculated 0844-4995 kcals/day (25-30 kcals/kg) Protein: Using Current wt Protein g/kg: Based on current wt 54.7 kg Protein Calculated 55 gm/day (1 gm/kg) Fluid: ml 3827-8658 ml/day (30-35 ml/kg) Nutritional Problem 1. Problem Problem No nutritional problems at this time. Malnutrition Alert Protein-Calorie Malnutrition N/A Is there a minimum of two criteria No selected? Query Text:Check all the applicable criteria. A minimum of two criteria are recommended for diagnosis of either severe or non-severe malnutrition. Malnutrition Related to Morbid Obesity Malnutrition related to morbid obesity No Intervention/Recommendation Comments 1. Continue with current diet as tolerated. 2. If PO intake decreases due to early satiety, recommend six small meals per day for better tolerance. Expected Outcomes/Goals Expected Outcomes/Goals Have pt meet at least 75% of estimated nutritional needs. Physician Parameters for PEM Normal Weight % 90% - 110% (Normal) Body Mass Index (BMI) 19 - 24 (Normal) Serum Albumin (g/dl) 3.5 - 5.0 (Normal)
--- NOTE | 2017-02-01 20:38 | Progress Notes ---
DATE: 02/01/2017 SUBJECTIVE: The patient was seen, chart reviewed, discussed with staff. The patient remains depressed, withdrawn, concerned about her arm; however, she is noting that any thoughts of self harm are dissipating. She states her depression is "better." She is still somewhat isolative, but no acting out behaviors, still confused, disoriented sleeping well, eating well. ASSESSMENT: The patient remains symptomatic, depressed, withdrawn, but improvement noted. PLAN: We will continue to monitor closely for any undue side effects. Continue Zoloft. JOB# [id number]
[2017-02-02] MEDS: Potassium Chloride 10 mEq ER Tab PO SCH (08:47)
--- NOTE | 2017-02-02 15:23 | General Progress Note ---
Subjective - Review of Systems Events since last encounter: patient remains withdrawn with no acute distress Objective - Results Result Diagrams: 01/18/17 14:58 01/18/17 14:58 Recent Labs: Laboratory Last Values WBC 10.0 Th/cmm (4.8-10.8) 01/18/17 14:58 RBC 3.96 Mil/cmm (3.80-5.20) 01/18/17 14:58 Hgb 12.7 gm/dL (11.7-16.1) 01/18/17 14:58 Hct 38.1 % (35.0-45.0) 01/18/17 14:58 MCV 96.3 fl (81-100) 01/18/17 14:58 MCH 32.0 pg (27.0-31.0) H 01/18/17 14:58 MCHC Differential 33.3 pg (28.0-36.0) 01/18/17 14:58 RDW 13.8 % (11.5-20.0) 01/18/17 14:58 Plt Count 228 Th/cmm (150-400) 01/18/17 14:58 MPV 9.6 fl 01/18/17 14:58 Neutrophils % 57.1 % (40.0-80.0) 01/18/17 14:58 Lymphocytes % 30.5 % (20.0-50.0) 01/18/17 14:58 Monocytes % 9.0 % (2.0-10.0) 01/18/17 14:58 Eosinophils % 2.6 % (0.0-5.0) 01/18/17 14:58 Basophils % 0.8 % (0.0-2.0) 01/18/17 14:58 PT 10.3 SECONDS (9.5-11.5) 01/18/17 14:58 INR 0.99 (0.5-1.4) 01/18/17 14:58 PTT (Actin FS) 23.2 SECONDS (26.0-38.0) L 01/18/17 14:58 Sodium 137 mEq/L (136-145) 01/18/17 14:58 Potassium 3.7 mEq/L (3.5-5.1) 01/18/17 14:58 Chloride 107 mEq/L (98-107) 01/18/17 14:58 Carbon Dioxide 25.4 mEq/L (21.0-31.0) 01/18/17 14:58 Anion Gap 8.3 (7.0-16.0) 01/18/17 14:58 BUN 7 mg/dL (7-25) 01/18/17 14:58 Creatinine 0.5 mg/dL (0.6-1.2) L 01/18/17 14:58 Est GFR ( Amer) TNP 01/18/17 14:58 Est GFR (Non-Af Amer) TNP 01/18/17 14:58 BUN/Creatinine Ratio 14.0 01/18/17 14:58 Glucose 114 mg/dL (70-105) H 01/18/17 14:58 Calcium 9.9 mg/dL (8.6-10.3) 01/18/17 14:58 Total Bilirubin 0.4 mg/dL (0.3-1.0) 01/18/17 14:58 AST 17 U/L (13-39) 01/18/17 14:58 ALT 9 U/L (7-52) 01/18/17 14:58 Alkaline Phosphatase 67 U/L (34-104) 01/18/17 14:58 Troponin I 0.01 ng/mL (0.01-0.05) 01/18/17 14:58 Total Protein 6.8 gm/dL (6.0-8.3) 01/18/17 14:58 Albumin 3.8 gm/dL (3.7-5.3) 01/18/17 14:58 Globulin 3.0 gm/dL 01/18/17 14:58 Albumin/Globulin Ratio 1.3 (1.0-1.8) 01/18/17 14:58 Triglycerides 129 mg/dL (<150) 01/18/17 14:58 Cholesterol 185 mg/dL (<200) 01/18/17 14:58 LDL Cholesterol Direct 99 mg/dL (75-193) 01/18/17 14:58 HDL Cholesterol 62 mg/dL (23-92) 01/18/17 14:58 TSH 1.78 uIU/ml (0.34-5.60) 01/18/17 14:58 Urine Source CLEAN C 01/18/17 14:30 Urine Color YELLOW 01/18/17 14:30 Urine Clarity SLIGHT CLOUDY (CLEAR) 01/18/17 14:30 Urine pH 6.5 (4.6 - 8.0) 01/18/17 14:30 Ur Specific [place] 1.015 (1.005-1.030) 01/18/17 14:30 Urine Protein NEGATIVE mg/dL (NEGATIVE) 01/18/17 14:30 Urine Glucose (UA) NEGATIVE mg/dL (NEGATIVE) 01/18/17 14:30 Urine Ketones NEGATIVE mg/dL (NEGATIVE) 01/18/17 14:30 Urine Blood TRACE (NEGATIVE) 01/18/17 14:30 Urine Nitrate NEGATIVE (NEGATIVE) 01/18/17 14:30 Urine Bilirubin NEGATIVE (NEGATIVE) 01/18/17 14:30 Urine Urobilinogen 0.2 E.U./dL (0.2 - 1.0) 01/18/17 14:30 Ur Leukocyte Esterase NEGATIVE (NEGATIVE) 01/18/17 14:30 Urine RBC 0-2 /hpf (0-5) 01/18/17 14:30 Urine WBC 0-2 /hpf (0-5) 01/18/17 14:30 Ur Epithelial Cells MODERATE /lpf (FEW) 01/18/17 14:30 Urine Bacteria MANY /hpf (NONE SEEN) 01/18/17 14:30 Rheumatoid Factor <10.0 IU/mL (0.0-13.9) 01/28/17 14:00 RPR NONREACTIVE (NONREACTIVE) 01/18/17 14:58 - Physical Exam Vitals and I&O: Vital Signs Temp 98.6 F 02/02/17 06:31 Pulse 69 02/02/17 06:31 Resp 20 02/02/17 06:31 BP 119/68 02/02/17 06:31 Pulse Ox 96 02/02/17 06:31 Intake & Output 02/01/17 02/02/17 02/02/17 18:59 06:59 18:59 Intake Total 950 360 Balance 950 360 Intake: Oral 950 360 Other: # Voids 4 1 # Bowel Movements 1 0 Active Medications: Current Medications Acetaminophen (Tylenol) 650 mg PO Q4HR PRN PRN Reason: Mild Pain / Temp above 100 Stop: 03/19/17 19:36 Last Admin: 02/02/17 08:56 Dose: 650 mg Al Hydrox/Mg Hydrox/Simethicone (Maalox) 30 ml PO Q4HR PRN PRN Reason: GI DISTRESS Stop: 03/19/17 19:36 Docusate Sodium (Colace) 100 mg PO Q24HR PRN PRN Reason: Constipation Stop: 03/19/17 19:59 Donepezil HCl (Aricept) 5 mg PO DAILY JACQUES Stop: 03/27/17 08:59 Last Admin: 02/02/17 08:47 Dose: 5 mg Folic Acid (Folate) 1 mg PO DAILY JACQUES Stop: 03/20/17 08:59 Last Admin: 02/02/17 08:47 Dose: 1 mg Lorazepam (Ativan) 1 mg PO Q6H PRN; Protocol PRN Reason: Anxiety Stop: 03/25/17 14:50 Last Admin: 01/26/17 14:53 Dose: 1 mg Magnesium Hydroxide (Milk Of Magnesia) 30 ml PO HS PRN PRN Reason: Constipation Ondansetron HCl (Zofran Odt) 4 mg PO Q6H PRN PRN Reason: Nausea / Vomiting Stop: 03/19/17 19:51 Potassium Chloride (Klor-Con) 10 meq PO DAILY JACQUES Stop: 03/20/17 08:59 Last Admin: 02/02/17 08:47 Dose: 10 meq Sertraline HCl (Zoloft) 75 mg PO DAILY JACQUES PRN Reason: Protocol Stop: 03/24/17 10:34 Last Admin: 02/02/17 08:47 Dose: 75 mg Thiamine HCl (Vitamin B1) 100 mg PO DAILY JACQUES Stop: 03/20/17 08:59 Last Admin: 02/02/17 08:47 Dose: 100 mg General: No acute distress HEENT: Atraumatic Cardiovascular: Regular rate, Normal S1, Normal S2 Assessment/Plan - Problem List Patient Problems: All Active Problems DEPRESSION WITH SUICIDAL IDEATION (Acute) - Plan Plan: monitor vital/diet labs f/up consultants Nutritional Asmnt/Malnutr-PDOC - Dietary Evaluation Malnutrition Findings (Please click <Entered> for more info): Nutritional Asmnt/Malnutrition Start: 01/22/17 18: 16 Text: Status: Complete Freq: Document 01/22/17 18:16 [facility] (Rec: 01/22/17 18:22 [facility] [id number]) Nutritional Asmnt/Malnutrition Patient General Information Nutritional Screening Moderate Risk Screening Diagnosis Rule otu dementia, rule out major depression Pertinent Medical Hx/Surgical Hx Dementia, ESRD, alcohol abuse Subjective Information Pt is a 76-year-old female from [facility] admitted with chief complaint of depression and being suicidal. Pt was awake and alert during time of visit. Pt is a good historian. Pt reports having a good appetite prior to admit. Pt states she appreciates the ground textured diet provided and she is able tolerate meals. PT wears dentures. Pt reports hx of having 6 inches of intestines surgically removed and so she cannot eat large portions. Pt reports UBW 125# of years. Pt appears well nourished with no signs of muscle or fat depletion. Current Diet Order/ Nutrition Support Mechanical soft ground, HAMZAH, low fat, low cholesterol Patient / S.O Can Pertinent Medications Folate, Klor-Con, Vitamin B1 Pertinent Labs Reviewed Nutritional Hx/Data Height 1.63 m Height (Calculated Centimeters) 162.6 Current Weight (lbs) 54.567 kg Weight (Calculated Kilograms) 54.6 Weight (Calculated Grams) 13740.2 Usual body Weight (lbs) 125 % Usual Body Weight 96 [place] Body Weight 120 % [place] Body Weight 100 Recent Weight Change No Weight Status Approriate GI Symptoms GI Symptoms None Difficult in: Chewing Food Allergies No Cultural/Ethnic/Denominational Belief No cultural or congregation beliefs provided. Pt receives fresh fruits and breakfast and lunch. Usual diet at home HAMZAH, low fat, low cholesterol Skin Integrity/Comment: Stone 20. Skin intact. Current %PO Fair (50-74%) Estimated Nutritional Goals BEE in Kcals: Using Current wt Calories/Kcals/Kg Based on current wt 54.7 kg Kcals Calculated 7294-4314 kcals/day (25-30 kcals/kg) Protein: Using Current wt Protein g/kg: Based on current wt 54.7 kg Protein Calculated 55 gm/day (1 gm/kg) Fluid: ml 1669-6579 ml/day (30-35 ml/kg) Nutritional Problem 1. Problem Problem No nutritional problems at this time. Malnutrition Alert Protein-Calorie Malnutrition N/A Is there a minimum of two criteria No selected? Query Text:Check all the applicable criteria. A minimum of two criteria are recommended for diagnosis of either severe or non-severe malnutrition. Malnutrition Related to Morbid Obesity Malnutrition related to morbid obesity No Intervention/Recommendation Comments 1. Continue with current diet as tolerated. 2. If PO intake decreases due to early satiety, recommend six small meals per day for better tolerance. Expected Outcomes/Goals Expected Outcomes/Goals Have pt meet at least 75% of estimated nutritional needs. Physician Parameters for PEM Normal Weight % 90% - 110% (Normal) Body Mass Index (BMI) 19 - 24 (Normal) Serum Albumin (g/dl) 3.5 - 5.0 (Normal)
--- NOTE | 2017-02-02 22:54 | Discharge Summary ---
DATE OF DISCHARGE: 02/02/2017 JUSTIFICATION FOR HOSPITALIZATION: The patient was suicidal, wanted to hurt herself. CHIEF COMPLAINT: Suicidal. HISTORY OF PRESENT ILLNESS: A 77-year-old female with cognitive impairment and decline, wanted to hurt herself in a nursing facility, was suicidal, expressing intent and plan of wanting to cut herself and , but when she came to the [facility] she was denying this and it was noted that she was having poor memory and seemed to be disoriented, but she was complaining of depression, anxiety, hopelessness, and despair. PAST PSYCHIATRIC HISTORY: Likely dementia and depression. FAMILY HISTORY: Noncontributory. SOCIAL HISTORY: Please see full initial eval. Her son is involved. I spoke with her son on the phone. MENTAL STATUS EXAMINATION: Please see full psych eval for details. PROVISIONAL DIAGNOSIS: Please see full psych eval for details. HOSPITAL COURSE: After the initial assessment, the patient was re-initiated on her antidepressant medications. Medications were adjusted and titrated. Over the course of the hospitalization, she improved, mood improved, affect improved, no longer suicidal, and no longer endorsing hopeless thoughts. Her son was involved. I filled out incapacity paper work. CONDITION UPON DISCHARGE: Improved with better attention to ADLs. Good eye contact. ____. Mood "okay." Affect is constricted. Thought processes were disoriented. No SI, no HI, no intent or plan. No evidence of psychosis. ____ insight and judgment. Hopeful and motivated that things will get better. PROVISIONAL DIAGNOSIS: Major depression, unspecified and dementia. MEDICAL: Please see full H and P. She has rheumatoid arthritis. PROGNOSIS: The patient follows up with outpatient mental health services and takes her medications as directed. Prognosis will improve, otherwise guarded. JOB# [id number]
== END 2017-02-02 15:45 | disposition home or self-care (01) | DRG 884 ==
LOC: ER 14:27 → GERO 16:30
PROVIDERS: ADMIT Psychiatry & Neurology Psychiatry; ATTEND Psychiatry & Neurology Psychiatry
DX: F03.90 Unspecified dementia, unspecified severity, without behavioral disturbance, psychotic disturbance, mood disturbance, and anxiety (principal); N17.9 Acute kidney failure, unspecified; M06.9 Rheumatoid arthritis, unspecified; R45.851 Suicidal ideations; N18.6 End stage renal disease; F39 Unspecified mood [affective] disorder; F32.9 Major depressive disorder, single episode, unspecified; E87.6 Hypokalemia; F29 Unspecified psychosis not due to a substance or known physiological condition; M62.81 Muscle weakness (generalized); Z88.8 Allergy status to other drugs, medicaments and biological substances
CPT/HCPCS: 36415-UA; 71010-TC; 73110-TC-LT; 80053-TC; 80061-TC; 81001-TC; 84443-TC; 84484-TC; 85025-TC; 85610-TC; 85730-TC; 86430-90; 86592-TC; 90899; Z7610